=== PATIENT | female | born 1970 | race Caucasian/White ===

== ENCOUNTER 2017-08-20 22:49 | Emergency (ER) | payer SELFPAY ==
[2017-08-21] VITALS: BP 115/69
[2017-08-21] MEDS ORDERED: KETOROLAC TROMETHAMINE INJ/PF 30 MG/1 ML SDV IM ONE (00:21)
--- NOTE | 2017-08-21 00:23 | ER Document Report ---
HPI - HPI Pain Level: 4 Notes: Patient is a 46-year-old female with a history of bilateral fibular grafts and chronic right lower extremity leg pain, tramadol 4 times a day, who presents to the ED complaining of acute on chronic right lower leg pain anteriorly. Patient states that she is normally active and was moving boxes today, but no other strenuous activities. She is not aware of any obvious injury. Patient states that the pain travels up the right anterior leg from her ankle to her knee side. Patient states that dorsiflexion makes her pain worse. She has not noticed any swelling or redness. Patient has chronic medial knee pain which is not new for her. Patient states that she also has chronic pain to the right anterior leg, but this is more than usual. Patient states that she recently moved to the area and has not established with a provider yet. Denies any headache, fever, URI, sore throat, chest pain, palpitations, syncope, cough, shortness of breath, wheeze, dyspnea, abdominal pain, nausea/vomiting/diarrhea, urinary retention, dysuria, hematuria, loss of control of bowel or bladder, numbness/tingling, saddle anesthesia, muscle paralysis/weakness, or rash. - ROS Systems Reviewed and Negative: Yes All other systems reviewed and negative - REPRODUCTIVE Reproductive: DENIES: : - MUSCULOSKELETAL Musculoskeletal: REPORTS: Extremity pain - R ankle/foot Past Medical History - Social History Smoking Status: Unknown if Ever Smoked Family History: None Patient has suicidal ideation: No Patient has homicidal ideation: No - Past Medical History Cardiac Medical History: Reports: Hx Hypertension Renal/ Medical History: Denies: Hx Peritoneal Dialysis Past Surgical History: Reports: Hx Appendectomy, Hx Breast Surgery - cyst removed, Hx Orthopedic Surgery - multiple back surgeries Vertical Provider Document - CONSTITUTIONAL Agree With Documented VS: Yes Notes: PHYSICAL EXAMINATION: GENERAL: Well-appearing, well-nourished and in no acute distress. LUNGS: Breath sounds clear to auscultation bilaterally and equal. No wheezes rales or rhonchi. HEART: Regular rate and rhythm without murmurs, rubs, gallops. Musculoskeletal: Rt ankle: FROM to passive/active. Strength 5+/5. N/V intact distal. Non-tender. No bony tenderness of the foot. Achilles intact. Rt leg: No erythema, swelling, ecchymosis. Compartments are soft. + mild tenderness to the rt anterolateral leg. No posterior calf tenderness. Concepción neg b/l. Rt knee: FROM. Strength 5+/5. + mild tenderness to the medial knee (chronic per patient). No ecchymosis, effusion, erythema, or swelling noted. Extremities: No cyanosis, clubbing, or edema b/l. Peripheral pulses 2+. Capillary refill less than 3 seconds. NEUROLOGICAL: Normal speech, limping gait. Normal sensory, motor exams PSYCH: Normal mood, normal affect. SKIN: Warm, Dry, normal turgor, no rashes or lesions noted. - INFECTION CONTROL TRAVEL OUTSIDE OF THE [place] IN LAST 30 DAYS: No Course - Re-evaluation Re-evalutation: 08/21/17 00:[address] Collins who is in agreement with dispo/plan: Patient is an afebrile, well-hydrated, 46-year-old female who presents to the ED with acute on chronic right leg pain, suspect inflammatory versus nerve etiology. Vitals are acceptable. PE is otherwise unremarkable for any neurovascular compromise, obvious tendon rupture, obvious fracture/dislocation, septic joint, DVT, compartment syndrome. Toradol given IM today. We will give her a trial of gabapentin to take as directed to monitor for tolerance and drowsiness. Her other labs warranted at this time based on H&P. Patient declined crutches. Conservative measures otherwise for symptoms. Recheck/ establish with PCM in 3-5 days. Consider consult orthopedics and physical therapy. Return to the ED with worsening/concerning symptoms otherwise as reviewed discharge. Patient is in agreement. - Vital Signs Vital signs: Temp Pulse Resp BP Pulse Ox 98.6 F 97 16 115/69 96 08/20/17 23:00 08/20/17 23:00 08/20/17 23:00 08/20/17 23:00 08/20/17 23:00 Discharge - Discharge Clinical Impression: Right leg pain Condition: Stable Disposition: HOME, SELF-CARE Instructions: Leg Pain Nonspecific ([facility]) Additional Instructions: Rest, Ice, Compression, Elevation Tylenol/ibuprofen as needed Light stretches daily Strength exercises as able Moist heat and massage may help F/u with your PCP in 3-5 days for a recheck Consider consult(s) with Orthopedics/physical therapy for ongoing/worsening symptoms Return to the ED with any worsening symptoms and/or development of fever, headache, chest pain, palpitations, syncope, shortness of breath, trouble breathing, abdominal pain, n/v/d, muscle weakness/paralysis, numbness/tingling, swelling, redness, or other worsening symptoms that are concerning to you. Prescriptions: Gabapentin 300 mg PO BID PRN #14 capsule PRN Reason: Referrals: [facility] [Provider Group] - Follow up as needed [facility] [Provider Group] - Follow up as needed [facility] [Provider Group] - Follow up as needed
== END 2017-08-21 00:35 | disposition home or self-care (01) ==
LOC: ER 22:49
DX: M79.604 Pain in right leg (principal); G89.29 Other chronic pain; I10 Essential (primary) hypertension
CPT/HCPCS: 99283; 96372; J1885

== ENCOUNTER 2017-09-24 21:45 | Emergency (ER) | payer SELFPAY ==
[2017-09-24] MEDS ORDERED: NORMAL SALINE 1000 ML 1,000 ML IV ONE (22:16)
[2017-09-24] MEDS ORDERED: ONDANSETRON HCL INJ/PF 4 MG/2 ML SDV IV ONE (22:16)
[2017-09-24] MEDS ORDERED: METOCLOPRAMIDE HCL INJ/PF 10 MG/2 ML SDV IV ONE (22:45)
[2017-09-24] MEDS ORDERED: DICYCLOMINE HCL INJ 20 MG/2 ML AMPULE IM ONE (22:45)
[2017-09-24] MEDS ORDERED: FENTANYL CITRATE INJ/PF 100 MCG/2 ML AMPUL IV ONE (22:45)
[2017-09-24 22:49] LABS: APPEARANCE,URINE CLOUDY; BILIRUBIN,URINE NEGATIVE (NEGATIVE); COLOR,URINE YELLOW; GLUCOSE, URINE NEGATIVE (NEGATIVE); KETONES,URINE NEGATIVE (NEGATIVE); LEUKOCYTE ESTERASE,URINE NEGATIVE (NEGATIVE); NITRITE,URINE POSITIVE (NEGATIVE); PROTEIN,URINE NEGATIVE (NEGATIVE); URINE SPECIFIC GRAVITY 1.024; UROBILINOGEN,URINE NEGATIVE mg/dL (<2.0)
--- NOTE | 2017-09-24 22:52 | ER Document Report ---
ED GI/ - General Mode of Arrival: Ambulatory Information source: Patient TRAVEL OUTSIDE OF THE [place] IN LAST 30 DAYS: No <CATHERINE MEEHAN - Last Filed: 09/25/17 01:41> <DESIREE GIMENEZ - Last Filed: 09/25/17 04:58> - General Chief Complaint: Nausea/Vomiting Stated Complaint: VOMITING Time Seen by Provider: 09/24/17 22:12 Notes: 46 y.o. female presents to the ED with nausea, vomiting and a low grade fever for about one week. Pt reports that she has not been able to keep any fluids or food down and that she has also been dry heaving. She also complains of epigastric pain and recent swollen lymph nodes. She states that her pain and nausea are somewhat relieved as she leans forward or resting as compared to standing. She reports that the highest her fever has reached was 100.6. Pt reports starting Latuda about 1.5 months ago. She denies any constipation or diarrhea. Pt denies any hx of cholecystectomy. She reports an appendectomy about 20 years ago and L4 L5 S1 fusion. (CATHERINE MEEHAN) - Related Data Allergies/Adverse Reactions: prednisone [Prednisone] Allergy (Verified 08/20/17 23:47) Past Medical History - General Information source: Patient - Social History Smoking Status: Smoker,Current Status Unk Smoking Education Provided: Yes Frequency of alcohol use: Social Drug Abuse: None Family History: None - Past Medical History Cardiac Medical History: Reports: Hx Hypertension Renal/ Medical History: Denies: Hx Peritoneal Dialysis Past Surgical History: Reports: Hx Appendectomy, Hx Breast Surgery - cyst removed, Hx Orthopedic Surgery - multiple back surgeries <CATHERINE MEEHAN - Last Filed: 09/25/17 01:41> Review of Systems - Review of Systems Constitutional: See HPI, Fever EENT: No symptoms reported Cardiovascular: No symptoms reported Respiratory: No symptoms reported Gastrointestinal: See HPI, Abdominal pain, Nausea, Vomiting. denies: Diarrhea, Constipation Genitourinary: No symptoms reported Female Genitourinary: No symptoms reported Musculoskeletal: No symptoms reported Skin: No symptoms reported Hematologic/Lymphatic: See HPI, Enlarged lymph nodes Neurological/Psychological: No symptoms reported -: Yes All other systems reviewed and negative <CATHERINE MEEHAN - Last Filed: 09/25/17 01:41> Physical Exam <CATHERINE MEEHAN - Last Filed: 09/25/17 01:41> <DESIREE GIMENEZ - Last Filed: 09/25/17 04:58> - Vital signs Vitals: Temp Pulse Resp BP Pulse Ox 99.4 F 103 H 20 132/79 H 96 09/24/17 21:54 09/24/17 21:54 09/24/17 21:54 09/24/17 21:54 09/24/17 21:54 - Notes Notes: Physical Exam: General: Alert, appears well. HEENT: Normocephalic. Atraumatic. PERRL. Extraocular movements intact. Dry mucous membranes. Neck: Supple. Non-tender. Respiratory: No respiratory distress. Clear and equal breath sounds bilaterally. Cardiovascular: Tachycardic rate and regular rhythm. Abdominal: Normal Inspection. Tender to palpation to epigatric region and RUQ. No distension. Normal Bowel Sounds. Back: Non-tender. No deformity or step off. Extremities: Moves all four extremities. Upper extremities: Normal inspection. Normal ROM. Lower extremities: Normal inspection. No edema. Normal ROM. Neurological: Normal cognition. AAOx3. Normal speech. Psychological: Normal affect. Normal Mood. Skin: Hot. Dry. Normal color. (CATHERINE MEEHAN) Course - Laboratory Result Diagrams: 09/24/17 23:00 09/24/17 23:00 <CATHERINE MEEHAN - Last Filed: 09/25/17 01:41> - Laboratory Result Diagrams: 09/24/17 23:00 09/24/17 23:00 - Diagnostic Test Radiology reviewed: Reports reviewed <DESIREE GIMENEZ - Last Filed: 09/25/17 04:58> - Re-evaluation Re-evalutation: 09/24/17 23:36 Rechecked patient. She reports that she is feeling better after treatment. 09/25/17 00:17 Pt is starting to have some upper abd pain again. CT ordered. 09/25/17 01:41 Pt is feeling better. (CATHERINE MEEHAN) 09/25/17 Patient is a 46-year-old female who comes in complaining of upper abdominal pain nausea and vomiting. Patient initially felt somewhat better after medications. Ultrasound within normal limits. Patient had some return of pain and was given GI cocktail. CT is not showing any acute findings. Patient is taking p.o. without difficulty and is feeling much better. She has also had recent upper respiratory symptoms and concern for sinus infection. Given the patient's exam and history are most consistent with gastritis or early peptic ulcer disease and difficulty with follow-up, I will start her on clarithromycin which should cover both her upper respiratory symptoms and possible sinusitis as well as her possible peptic ulcer disease. The patient does not have insurance or follow-up. I placed a social work consult to hopefully help her with insurance and ability to get prescriptions and follow-up. Patient has no further abdominal pain or tenderness to palpation on discharge. Vitals are improved. Return if any worsening or concerning symptoms. Understands agrees with plan. Stable for discharge. Grateful for care. (DESIREE GIMENEZ) - Vital Signs Vital signs: Temp Pulse Resp BP Pulse Ox 98.7 F 85 16 113/75 95 09/25/17 03:43 09/25/17 03:43 09/25/17 03:43 09/25/17 03:43 09/25/17 03:43 - Laboratory Laboratory results interpreted by me: 09/24/17 09/24/17 22:30 23:00 BUN 21 H AST 71 H Urine Nitrite POSITIVE H Discharge <CATHERINE MEEHAN - Last Filed: 09/25/17 01:41> <DESIREE GIMENEZ - Last Filed: 09/25/17 04:58> - Discharge Clinical Impression: Vomiting Qualifiers: Vomiting type: unspecified Vomiting Intractability: non-intractable Nausea presence: with nausea Qualified Code(s): R11.2 - Nausea with vomiting, unspecified Abdominal pain Qualifiers: Abdominal location: epigastric Qualified Code(s): R10.13 - Epigastric pain Condition: Stable Disposition: HOME, SELF-CARE Instructions: Evaluation of Upper Abdominal Pain ([facility]), Vomiting ([facility]) Prescriptions: Clarithromycin 500 mg PO BID #14 tablet Dicyclomine HCl [Bentyl 20 mg Tablet] 20 mg PO QID #40 tablet Metoclopramide HCl [Reglan 10 mg Tablet] 1 tab PO TIDP PRN #25 tablet PRN Reason: Omeprazole 40 mg PO DAILY #30 capsule. Sucralfate [Carafate 1 gm Tablet] 1 gm PO ACHS #120 tablet Scribe Attestation: 09/25/17 04:58 I personally performed the services described in the documentation, reviewed and edited the documentation which was dictated to the scribe in my presence, and it accurately records my words and actions. (DESIREE GIMENEZ) Scribe Documentation - Scribe Written by Alesha:: Alesha Nelson 09/24/17 [id number] acting as scribe for :: Cici <CATHERINE MEEHAN - Last Filed: 09/25/17 01:41>
[2017-09-24 23:17] LABS: ABSOLUTE BASOPHILS # (AUTO) 0.1 10^3/uL (0.0-0.2); ABSOLUTE EOSINOPHILS # (AUTO) 0.1 10^3/uL (0.0-0.6); ABSOLUTE MONOCYTES (AUTO) 0.6 10^3/uL (0.1-1.4); ABSOLUTE NEUT (AUTO) 5.4 10^3/uL (1.7-8.2); BASOPHILS % (AUTO) 1.3 % (0-2); EOSINOPHILS % (AUTO) 1.5 % (0-6); HEMATOCRIT 36.4 % (36.0-47.0); HEMOGLOBIN 12.6 g/dL (12.0-15.5); LYMPHOCYTES % (AUTO) 24.1 % (13-45); MEAN CORPUSCULAR HEMOGLOBIN 32.8 pg (27.0-33.4); MEAN CORPUSCULAR HGB CONC 34.6 g/dL (32.0-36.0); MEAN CORPUSCULAR VOLUME 95 fl (80-97); MONOCYTES % (AUTO) 7.7 % (3-13); PLATELET COUNT 347 10^3/uL (150-450); RED BLOOD COUNT 3.84 10^6/uL (3.72-5.28); RED CELL DISTRIBUTION WIDTH 13.4 % (11.5-14.0); SEGMENTED NEUTROPHILS % (AUTO) 65.4 % (42-78); TOTAL CELLS COUNTED % (AUTO) 100 %; WHITE BLOOD COUNT 8.3 10^3/uL (4.0-10.5)
[2017-09-24 23:30] LABS: ALANINE AMINOTRANSFERASE 38 U/L (9-52); ALBUMIN 4.3 g/dL (3.5-5.0); ALKALINE PHOSPHATASE 84 U/L (38-126); ANION GAP 11 (5-19); ASPARTATE AMINO TRANSFERASE 71 U/L (14-36); BILIRUBIN,DIRECT 0.2 mg/dL (0.0-0.4); BILIRUBIN,TOTAL 0.2 mg/dL (0.2-1.3); BLOOD UREA NITROGEN 21 mg/dL (7-20); CARBON DIOXIDE 26 mmol/L (22-30); CHLORIDE 104 mmol/L (98-107); GLUCOSE 90 mg/dL (75-110); LIPASE 114.7 U/L (23-300); POTASSIUM 4.4 mmol/L (3.6-5.0); SODIUM 141.2 mmol/L (137-145); TOTAL PROTEIN 7.3 g/dL (6.3-8.2)
--- NOTE | 2017-09-24 23:58 | RADIOLOGY REPORT (SQ) ---
EXAM DESCRIPTION: XR ABDOMEN 3 VIEWS CLINICAL HISTORY: 46 years Female, Abd pain, N/V Comparison: None. LIMITATIONS: None. FINDINGS: Gallbladder, negative sonographic Fulton's test, liver, a 0.4-cm diameter common bile duct, no intrahepatic ductal dilation, 10-cm right kidney contains a 1.9 cm indeterminate hypoechoic exophytic lesion, pancreas, 10 cm left kidney, spleen, visualized vasculature/abdominal aorta, and no significant ascites appear otherwise unremarkable. IMPRESSION: Indeterminate 1.9 cm right renal lesion may indicate a hemorrhagic cyst or other neoplasm. Recommend multiphase contrast CT or MRI of the kidneys.
[2017-09-25] MEDS ORDERED: SUCRALFATE 1 GM TABLET PO ONE (00:15)
[2017-09-25] MEDS ORDERED: PANTOPRAZOLE SODIUM 40 MG VIAL IV ONE (00:15)
[2017-09-25] MEDS ORDERED: FENTANYL CITRATE INJ/PF 100 MCG/2 ML AMPUL IV ONE (00:33)
--- NOTE | 2017-09-25 01:23 | RADIOLOGY REPORT (SQ) ---
EXAM DESCRIPTION: CT ABDOMEN PELVIS WITH IV CONTRAST CLINICAL HISTORY: 46 years Female, Abd pain, N/V Comparison: None. Technique: IV contrast. Coronal and sagittal reformat. This exam was performed according to our departmental dose-optimization program, which includes automated exposure control, adjustment of the mA and/or kV according to patient size and/or use of iterative reconstruction technique.[facility]: Dose Right [facility]: CareDose [facility]: Dose Right [facility]: Teradose 4D [facility]: Smart Wize LIMITATIONS: As below. Findings: No ascites. Anterior L5-S1 hardware fusion, intramedullary tract/graft of bilateral femoral necks, mild hepatic steatosis, no appendicitis; appendix not discerned consistent with history of appendectomy. Inferior thorax, liver, gallbladder, pancreas, spleen, adrenals, renal system, gastrointestinal tract, pelvic organs, lymphatics, vasculature, and musculoskeleton appear otherwise unremarkable. IMPRESSION: No acute findings.Limitation: There is no obvious renal lesion on this nondedicated exam in this patient with an abnormal previous abdominal sonogram. Multiphase dedicated contrast CT or MRI of the kidneys still recommended including noncontrast and arterial phase thin collimation imaging.
[2017-09-25] MEDS ORDERED: CLARITHROMYCIN 500 MG TABLET PO ONE ×2 (01:40→03:07)
[2017-09-25 03:45] VITALS: BP 113/75
== END 2017-09-25 03:43 | disposition home or self-care (01) ==
LOC: ER 21:45
DX: R11.2 Nausea with vomiting, unspecified (principal); R50.9 Fever, unspecified; R10.13 Epigastric pain; R10.816 Epigastric abdominal tenderness; R10.811 Right upper quadrant abdominal tenderness; I10 Essential (primary) hypertension; R09.89 Other specified symptoms and signs involving the circulatory and respiratory systems; R59.9 Enlarged lymph nodes, unspecified; R00.0 Tachycardia, unspecified; Z79.899 Other long term (current) drug therapy; Z88.8 Allergy status to other drugs, medicaments and biological substances; Z90.49 Acquired absence of other specified parts of digestive tract
CPT/HCPCS: 96376; 99284; 96372; 96361; 96374; 96375; 36415; 83690; 85025; 80053; 81001; 84484; 76700; 74177; J0500; J3010 ×2; J3490; J2765; S0164; J7030

== ENCOUNTER → 2017-12-06 | Outpatient (CLI) | payer OTHER ==
[2017-12-06 16:21] LABS: ABSOLUTE BASOPHILS # (AUTO) 0.1 10^3/uL (0.0-0.2); ABSOLUTE EOSINOPHILS # (AUTO) 0.4 10^3/uL (0.0-0.6); ABSOLUTE LYMPHOCYTES (AUTO) 3.2 10^3/uL (0.5-4.7); ABSOLUTE MONOCYTES (AUTO) 0.8 10^3/uL (0.1-1.4); ABSOLUTE NEUT (AUTO) 7.9 10^3/uL (1.7-8.2); EOSINOPHILS % (AUTO) 3.4 % (0-6); HEMATOCRIT 36.8 % (36.0-47.0); HEMOGLOBIN 12.8 g/dL (12.0-15.5); LYMPHOCYTES % (AUTO) 25.9 % (13-45); MEAN CORPUSCULAR HEMOGLOBIN 32.1 pg (27.0-33.4); MEAN CORPUSCULAR HGB CONC 34.7 g/dL (32.0-36.0); MEAN CORPUSCULAR VOLUME 93 fl (80-97); MONOCYTES % (AUTO) 6.4 % (3-13); PLATELET COUNT 357 10^3/uL (150-450); RED BLOOD COUNT 3.98 10^6/uL (3.72-5.28); SEGMENTED NEUTROPHILS % (AUTO) 63.3 % (42-78); TOTAL CELLS COUNTED % (AUTO) 100 %; WHITE BLOOD COUNT 12.4 10^3/uL (4.0-10.5)
[2017-12-06 17:03] LABS: ERYTHROCYTE SEDIMENTATION RATE 30 mm/hr (0-20)
[2017-12-06 17:17] LABS: ANION GAP 14 (5-19); BLOOD UREA NITROGEN 22 mg/dL (7-20); C-REACTIVE PROTEIN 19.1 mg/L (<10.0); CALCIUM 9.6 mg/dL (8.4-10.2); CARBON DIOXIDE 22 mmol/L (22-30); CHLORIDE 102 mmol/L (98-107); GLUCOSE 85 mg/dL (75-110); POTASSIUM 4.5 mmol/L (3.6-5.0); SODIUM 138.2 mmol/L (137-145)
== END ==
LOC: CCC 14:57
DX: R10.9 Unspecified abdominal pain (principal); R11.2 Nausea with vomiting, unspecified; R50.9 Fever, unspecified
CPT/HCPCS: 36415; 80048; 82306; 84443; 85025; 85652; 86140; 86200

== ENCOUNTER → 2017-12-13 | Outpatient (CLI) | payer OTHER ==
--- NOTE | 2017-12-13 12:55 | RADIOLOGY REPORT (SQ) ---
EXAM DESCRIPTION: UPPER GI/SM BOWEL COMPLETED DATE/TIME: 12/13/2017 12:18 pm REASON FOR STUDY: UNSPECIFIED ABDOMINAL PAIN R10.9 UNSPECIFIED ABDOMINAL PAIN R11.2 NAUSEA WITH VO MITING, UNSPECIFIED COMPARISON: CT abdomen pelvis 09/25/2017 Abdominal ultrasound 09/24/2017 TECHNIQUE: Under fluoroscopic guidance, patient ingested effervescent granules followed by thick an d thin barium. Fluoroscopic spot images and routine radiographic images acquired and stored on PACS . Following evaluation of esophagus and stomach, additional barium administered with serial delayed ab dominal radiographs until colonic identification. Fluoroscopic images recorded of the terminal ileu m. 12 MM BARIUM TABLET GIVEN: Yes. No significant delay in passage. FLUOROSCOPY TIME: 3 minutes total fluoro time 45 digital radiographic images saved to PACS. LIMITATIONS: None. FINDINGS: NEUROMUSCULAR COORDINATION OF SWALLOW: Normal. No aspiration. ESOPHAGEAL MOTILITY: Normal peristalsis. No esophageal spasm. ESOPHAGEAL MUCOSA: Normal mucosa without masses or ulceration. GASTRO-ESOPHAGEAL JUNCTION: There is a small sliding hiatal hernia without gastroesophageal reflux STOMACH: Along the posterior wall of the gastric antrum, there is mucosal irregularity which could re present regional edema related to a small ulcer. This area is very difficult to profile at fluorosco py. No delay in gastric emptying. GASTRIC OUTLET: No delay in emptying. Normal pylorus. DUODENAL BULB: Normal distention. No spasm or ulceration. DUODENUM: Mucosa normal. No extrinsic masses or malrotation. PROXIMAL SMALL BOWEL: Normal as visualized. JEJUNUM: Normal mucosal pattern. No dilatation, segmentation, strictures or masses. ILEUM: Normal mucosal pattern. No dilatation, segmentation, strictures or masses. TERMINAL ILEUM AND ILEO-CECAL VALVE: Normal mucosal pattern without cobble-stoning or stricture. Nor mal compression. PROXIMAL COLON: Incompletely imaged. No abnormality. NON-GI TRACT STRUCTURES: Policy Issue Clerk film demonstrates fusion at L5-S1 and bilateral proximal femur osteoto mies for avascular necrosis. OTHER: No other significant finding. IMPRESSION: Findings worrisome for a small gastric antral ulcer. Otherwise unremarkable upper GI/ small bowel follow-through COMMENT: Quality ID [id number]: Final reports for procedures using fluoroscopy that document radiation exp osure indices, or exposure time and number of fluorographic images (if radiation exposure indices are not available) TECHNICAL DOCUMENTATION: JOB ID: [id number] [employer]- All Rights Reserved Reading location - IP/workstation name: [email or web address]
== END ==
LOC: RAD 08:14
DX: K25.9 Gastric ulcer, unspecified as acute or chronic, without hemorrhage or perforation (principal); R10.9 Unspecified abdominal pain; R11.2 Nausea with vomiting, unspecified
CPT/HCPCS: 74249

== ENCOUNTER → 2017-12-22 | Outpatient (CLI) | payer OTHER | LOC: RAD 14:54 | DX: R41.3 Other amnesia (principal) ==

== ENCOUNTER 2018-01-02 17:25 | Emergency (ER) | payer OTHER ==
[2018-01-02 18:01] VITALS: BP 116/64
== END 2018-01-02 18:05 | disposition left against medical advice (07) ==
LOC: ER 17:25
DX: Z53.21 Procedure and treatment not carried out due to patient leaving prior to being seen by health care provider (principal)

== ENCOUNTER 2018-01-03 11:21 | Emergency (ER) | payer OTHER ==
[2018-01-03] MEDS ORDERED: HYDROCODONE/ACETAMINOPHEN 5-325 MG TABLET PO ONE (12:34)
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
[2018-01-03 12:57] LABS: APPEARANCE,URINE SLIGHTLY-CLOUDY; BILIRUBIN,URINE NEGATIVE (NEGATIVE); COLOR,URINE YELLOW; GLUCOSE, URINE NEGATIVE (NEGATIVE); KETONES,URINE NEGATIVE (NEGATIVE); LEUKOCYTE ESTERASE,URINE NEGATIVE (NEGATIVE); NITRITE,URINE NEGATIVE (NEGATIVE); PROTEIN,URINE NEGATIVE (NEGATIVE); URINE SPECIFIC GRAVITY 1.014; UROBILINOGEN,URINE NEGATIVE mg/dL (<2.0)
[2018-01-03 13:31] LABS: ABSOLUTE BASOPHILS # (AUTO) 0.1 10^3/uL (0.0-0.2); ABSOLUTE EOSINOPHILS # (AUTO) 0.4 10^3/uL (0.0-0.6); ABSOLUTE LYMPHOCYTES (AUTO) 3.7 10^3/uL (0.5-4.7); ABSOLUTE MONOCYTES (AUTO) 0.7 10^3/uL (0.1-1.4); BASOPHILS % (AUTO) 1.1 % (0-2); EOSINOPHILS % (AUTO) 2.8 % (0-6); HEMATOCRIT 37.6 % (36.0-47.0); HEMOGLOBIN 12.7 g/dL (12.0-15.5); LYMPHOCYTES % (AUTO) 28.6 % (13-45); MEAN CORPUSCULAR HEMOGLOBIN 31.2 pg (27.0-33.4); MEAN CORPUSCULAR HGB CONC 33.9 g/dL (32.0-36.0); MEAN CORPUSCULAR VOLUME 92 fl (80-97); MONOCYTES % (AUTO) 5.3 % (3-13); PLATELET COUNT 344 10^3/uL (150-450); RED BLOOD COUNT 4.08 10^6/uL (3.72-5.28); RED CELL DISTRIBUTION WIDTH 13.3 % (11.5-14.0); SEGMENTED NEUTROPHILS % (AUTO) 62.2 % (42-78); TOTAL CELLS COUNTED % (AUTO) 100 %; WHITE BLOOD COUNT 12.8 10^3/uL (4.0-10.5)
[2018-01-03 13:40] LABS: ALANINE AMINOTRANSFERASE 44 U/L (9-52); ALBUMIN 4.2 g/dL (3.5-5.0); ALKALINE PHOSPHATASE 98 U/L (38-126); ANION GAP 8 (5-19); ASPARTATE AMINO TRANSFERASE 24 U/L (14-36); BILIRUBIN,DIRECT 0.3 mg/dL (0.0-0.4); BILIRUBIN,TOTAL 0.4 mg/dL (0.2-1.3); BLOOD UREA NITROGEN 36 mg/dL (7-20); CALCIUM 9.6 mg/dL (8.4-10.2); CARBON DIOXIDE 25 mmol/L (22-30); CHLORIDE 103 mmol/L (98-107); GLUCOSE 96 mg/dL (75-110); POTASSIUM 4.7 mmol/L (3.6-5.0); SODIUM 135.9 mmol/L (137-145); TOTAL PROTEIN 7.2 g/dL (6.3-8.2)
[2018-01-03] MEDS ORDERED: NORMAL SALINE 1000 ML 1,000 ML IV ONE (14:10)
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
[2018-01-03] MEDS ORDERED: LIDOCAINE 5% (700 MG) TRANSDERMAL ADH..PATCH TP ONE (14:32)
[2018-01-03 15:05] VITALS: BP 102/52
== END 2018-01-03 15:05 | disposition home or self-care (01) ==
LOC: ER 11:21
DX: R10.9 Unspecified abdominal pain (principal); V87.7XXA Person injured in collision between other specified motor vehicles (traffic), initial encounter; F17.210 Nicotine dependence, cigarettes, uncomplicated
CPT/HCPCS: 36415; 74177; 80053; 81001; 84703; 85025; 96360; 99284

== ENCOUNTER 2018-01-29 20:20 | Emergency (ER) | payer OTHER ==
[2018-01-29 20:42] VITALS: BP 112/64
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
[2018-01-29 21:32] LABS: ABSOLUTE EOSINOPHILS # (AUTO) 0.2 10^3/uL (0.0-0.6); ABSOLUTE LYMPHOCYTES (AUTO) 3.8 10^3/uL (0.5-4.7); ABSOLUTE MONOCYTES (AUTO) 0.5 10^3/uL (0.1-1.4); ABSOLUTE NEUT (AUTO) 7.8 10^3/uL (1.7-8.2); BASOPHILS % (AUTO) 0.2 % (0-2); HEMATOCRIT 34.5 % (36.0-47.0); HEMOGLOBIN 12.1 g/dL (12.0-15.5); LYMPHOCYTES % (AUTO) 30.5 % (13-45); MEAN CORPUSCULAR HEMOGLOBIN 33.2 pg (27.0-33.4); MEAN CORPUSCULAR VOLUME 95 fl (80-97); MONOCYTES % (AUTO) 4.3 % (3-13); PLATELET COUNT 385 10^3/uL (150-450); RED BLOOD COUNT 3.64 10^6/uL (3.72-5.28); RED CELL DISTRIBUTION WIDTH 15.7 % (11.5-14.0); TOTAL CELLS COUNTED % (AUTO) 100 %; WHITE BLOOD COUNT 12.4 10^3/uL (4.0-10.5)
[2018-01-29 21:42] LABS: APPEARANCE,URINE SLIGHTLY-CLOUDY; BILIRUBIN,URINE NEGATIVE (NEGATIVE); COLOR,URINE YELLOW; GLUCOSE, URINE NEGATIVE (NEGATIVE); KETONES,URINE NEGATIVE (NEGATIVE); LEUKOCYTE ESTERASE,URINE MODERATE (NEGATIVE); NITRITE,URINE NEGATIVE (NEGATIVE); PROTEIN,URINE NEGATIVE (NEGATIVE); UROBILINOGEN,URINE NEGATIVE mg/dL (<2.0)
[2018-01-29 22:03] LABS: ALANINE AMINOTRANSFERASE 21 U/L (9-52); ALKALINE PHOSPHATASE 77 U/L (38-126); ANION GAP 9 (5-19); ASPARTATE AMINO TRANSFERASE 15 U/L (14-36); BILIRUBIN,DIRECT 0.1 mg/dL (0.0-0.4); BILIRUBIN,TOTAL 0.3 mg/dL (0.2-1.3); BLOOD UREA NITROGEN 15 mg/dL (7-20); CALCIUM 9.5 mg/dL (8.4-10.2); CARBON DIOXIDE 24 mmol/L (22-30); CHLORIDE 109 mmol/L (98-107); GLUCOSE 87 mg/dL (75-110); POTASSIUM 3.8 mmol/L (3.6-5.0); SODIUM 142.1 mmol/L (137-145)
[2018-01-29] MEDS ORDERED: KETOROLAC TROMETHAMINE INJ/PF 30 MG/1 ML SDV IV ONE (23:02)
[2018-01-29] MEDS ORDERED: ONDANSETRON HCL INJ/PF 4 MG/2 ML SDV IV ONE (23:03)
[2018-01-29] MEDS ORDERED: NORMAL SALINE 1000 ML 1,000 ML IV ONE (23:03)
--- NOTE | 2018-01-29 23:57 | RADIOLOGY REPORT (SQ) ---
EXAM DESCRIPTION: CT ABDOMEN PELVIS WITH IV CONTRAST COMPLETED DATE/TME: 01/29/2018 23:02 CLINICAL HISTORY: 47 years Female Right Flank Pain COMPARISON: 01/02/2018. TECHNIQUE: Contiguous axial images obtained through the abdomen and pelvis following IV contrast. Reformatted images obtained. This exam was performed according to our department optimization program which includes automated exposure control, adjustment of the mA and/or kv according to patient size and/or use of iterative reconstruction technique. FINDINGS: The liver appears unremarkable. The spleen and pancreas appear unremarkable. No adrenal masses. No hydronephrosis or evidence of obstructive uropathy. Perinephric stranding around the mid and lower pole the right kidney with a subtly striated nephrogram best appreciated on the postcontrast delayed imaging. Findings are consistent with pyelonephritis. The gallbladder is visualized. No aneurysmal dilatation of the aorta. No bowel obstruction. The appendix is nonvisualized. Diverticulosis without evidence of diverticulitis. Anterior fusion at L5-S1.. No significant free fluid noted. IMPRESSION: Findings suggesting right pyelonephritis
[2018-01-30] MEDS ORDERED: CEFTRIAXONE 2 GM/D5W RTU 2 GM/50 ML RTUPB IV ONE (00:16)
[2018-01-30] MEDS ORDERED: CEFTRIAXONE INJ 1000 MG VIAL ONE (00:55)
--- NOTE | 2018-01-30 01:42 | ER Document Report ---
ED GI/ - General Chief Complaint: Flank Pain Stated Complaint: BLOOD IN URINE Time Seen by Provider: 01/29/18 20:57 Mode of Arrival: Ambulatory Information source: Patient TRAVEL OUTSIDE OF THE [place] IN LAST 30 DAYS: No - HPI Patient complains to provider of: Abdominal pain, Flank pain, Hematuria Onset: Just prior to arrival Timing/Duration: Sudden Quality of pain: Sharp Severity at maximum: Severe Severity in ED: Moderate Pain Level: 3 Location: Right flank Vaginal bleeding (Compared to normal period): None OB ultrasound done: No vitamins taken: No Exacerbated by: Denies Relieved by: Denies Similar symptoms previously: No Recently seen / treated by doctor: No - Related Data Allergies/Adverse Reactions: prednisone [Prednisone] Allergy (Verified 01/02/18 17:26) Past Medical History - Social History Smoking Status: Current Every Day Smoker Chew tobacco use (# tins/day): No Frequency of alcohol use: Occasional Drug Abuse: None Family History: None Patient has suicidal ideation: No Patient has homicidal ideation: No - Past Medical History Cardiac Medical History: Reports: Hx Hypertension Renal/ Medical History: Denies: Hx Peritoneal Dialysis Psychiatric Medical History: Reports: Hx Anxiety, Hx Depression, Hx Post Traumatic Stress Disorder Past Surgical History: Reports: Hx Appendectomy, Hx Breast Surgery - cyst removed, Hx Orthopedic Surgery - multiple back surgeries Review of Systems - Review of Systems Constitutional: No symptoms reported EENT: No symptoms reported Cardiovascular: No symptoms reported Respiratory: No symptoms reported Gastrointestinal: Abdominal pain Genitourinary: No symptoms reported Female Genitourinary: No symptoms reported Musculoskeletal: No symptoms reported Skin: No symptoms reported Hematologic/Lymphatic: No symptoms reported Neurological/Psychological: No symptoms reported -: Yes All other systems reviewed and negative Physical Exam - Vital signs Vitals: Temp Pulse Resp BP Pulse Ox 98.5 F 100 16 112/64 94 01/29/18 20:38 01/29/18 20:38 01/29/18 20:38 01/29/18 20:38 01/29/18 20:38 Interpretation: Normal - General General appearance: Appears well, Alert - HEENT Head: Normocephalic, Atraumatic Eyes: Normal Pupils: PERRL - Respiratory Respiratory status: No respiratory distress Chest status: Nontender Breath sounds: Normal Chest palpation: Normal - Cardiovascular Rhythm: Regular Heart sounds: Normal auscultation Murmur: No - Abdominal Inspection: Normal Distension: No distension Bowel sounds: Normal Tenderness: Tender - Right CVA tenderness to palpation. Organomegaly: No organomegaly - Back Back: Normal, Nontender - Extremities General upper extremity: Normal inspection, Nontender, Normal color, Normal ROM , Normal temperature General lower extremity: Normal inspection, Nontender, Normal color, Normal ROM , Normal temperature, Normal weight bearing. No: Concepción's sign - Neurological Neuro grossly intact: Yes Cognition: Normal Orientation: AAOx4 Lynch Coma Scale Eye Opening: Spontaneous Lynch Coma Scale Verbal: Oriented Lynch Coma Scale Motor: Obeys Commands Odin Coma Scale Total: 15 Speech: Normal Motor strength normal: LUE, RUE, LLE, RLE Sensory: Normal - Psychological Associated symptoms: Normal affect, Normal mood - Skin Skin Temperature: Warm Skin Moisture: Dry Skin Color: Normal Course - Vital Signs Vital signs: Temp Pulse Resp BP Pulse Ox 98.5 F 100 16 112/64 94 01/29/18 20:38 01/29/18 20:38 01/29/18 20:38 01/29/18 20:38 01/29/18 20:38 - Laboratory Result Diagrams: 01/29/18 21:21 01/29/18 21:21 Laboratory results interpreted by me: 01/29/18 01/29/18 01/29/18 21:21 21:21 21:21 WBC 12.4 H RBC 3.64 L Hct 34.5 L RDW 15.7 H Chloride 109 H Urine Blood LARGE H Ur Leukocyte Esterase MODERATE H - Diagnostic Test Radiology reviewed: Image reviewed, Reports reviewed - Transfer of Care Notes: 01/30/18 03:38 Right flank pain. Discharge - Discharge Clinical Impression: Pyelonephritis Hematuria Qualifiers: Hematuria type: other microscopic Qualified Code(s): R31.29 - Other microscopic hematuria Condition: Stable Disposition: HOME, SELF-CARE Instructions: Hematuria ([facility]), Pyelonephritis ([facility]) Additional Instructions: Please follow up with your regular doctor tomorrow morning. Return to the ED if your condition worsens. Prescriptions: Cephalexin [Keflex] 500 mg PO QID #40 capsule Ibuprofen 800 mg PO TID PRN #30 tablet PRN Reason: Pain Scale Of 4 Ondansetron [Zofran Odt 4 mg Tablet] 1 - 2 tab PO Q6H PRN #20 tab.rapdis PRN Reason: For Nausea/Vomiting Forms: Return to Work Referrals: ANATOLIY CRUZ MD [Primary Care Provider] - Follow up as needed
== END 2018-01-30 02:02 | disposition home or self-care (01) ==
LOC: ER 20:20
DX: N12 Tubulo-interstitial nephritis, not specified as acute or chronic (principal); R31.29 Other microscopic hematuria; R10.9 Unspecified abdominal pain; F17.200 Nicotine dependence, unspecified, uncomplicated; I10 Essential (primary) hypertension
CPT/HCPCS: 99284; 96361; 96375; 96365; 36415; 87086; 85025; 81025; 87088; 80053; 81001; 87186; 74177; J1885; J2405; J7030; J0696

== ENCOUNTER 2018-02-18 18:24 | Emergency (ER) | payer OTHER ==
[2018-02-18] MEDS ORDERED: ONDANSETRON HCL INJ/PF 4 MG/2 ML SDV IV ONE (18:46)
[2018-02-18] MEDS ORDERED: MORPHINE SULFATE 10 MG/ML INJ IV ONE ×2 (18:46→21:22)
[2018-02-18] MEDS: NORMAL SALINE 1000 ML 1,000 ML IV PRN ×2 (18:58→20:07)
--- NOTE | 2018-02-18 18:58 | ER Document Report ---
ED Medical Screen (RME) - General Chief Complaint: Flank Pain Stated Complaint: FLANK PAIN Time Seen by Provider: 02/18/18 18:45 Mode of Arrival: Ambulatory Information source: Patient Notes: This is a 47-year-old female presenting to the emergency room with right back pain/flank pain for the past 2 days associated with nausea, vomiting, subjective fevers. Patient does have a history of right back pain and was treated 2 weeks ago for a pyelonephritis. She has had recurrent symptoms of the right back for the past several months and has had multiple CTs in the past 4 months. Ultrasound in the past has shown a possible right renal lesion but subsequent CTs have not observe this. The patient's last CT showed findings consistent with pyelonephritis. She was initially placed on Keflex which was switched over to Cipro after return of urine culture. Patient states she did improve after the Cipro. She states that symptoms returned 2 days ago. TRAVEL OUTSIDE OF THE [place] IN LAST 30 DAYS: No - Related Data Allergies/Adverse Reactions: prednisone [Prednisone] Allergy (Verified 01/02/18 17:26) Past Medical History - Social History Family history: None - Past Medical History Cardiac Medical History: Reports: Hx Hypertension Renal/ Medical History: Denies: Hx Peritoneal Dialysis Psychiatric Medical History: Reports: Hx Anxiety, Hx Post Traumatic Stress Disorder Denies: Hx Depression Past Surgical History: Reports: Hx Appendectomy, Hx Breast Surgery - cyst removed, Hx Orthopedic Surgery - multiple back surgeries Physical Exam - Vital signs Vitals: Temp Pulse Resp BP Pulse Ox 98.3 F 95 18 127/84 H 97 02/18/18 18:32 02/18/18 18:32 02/18/18 18:32 02/18/18 18:32 02/18/18 18:32 Course - Vital Signs Vital signs: Temp Pulse Resp BP Pulse Ox 98.3 F 95 18 127/84 H 97 02/18/18 18:32 02/18/18 18:32 02/18/18 18:32 02/18/18 18:32 02/18/18 18:32 Doctor's Discharge - Discharge Referrals: ANATOLIY CRUZ MD [Primary Care Provider] - Follow up as needed
[2018-02-18 19:15] LABS: ABSOLUTE BASOPHILS # (AUTO) 0.2 10^3/uL (0.0-0.2); ABSOLUTE EOSINOPHILS # (AUTO) 0.1 10^3/uL (0.0-0.6); ABSOLUTE LYMPHOCYTES (AUTO) 3.3 10^3/uL (0.5-4.7); ABSOLUTE MONOCYTES (AUTO) 0.8 10^3/uL (0.1-1.4); ABSOLUTE NEUT (AUTO) 15.6 10^3/uL (1.7-8.2); BASOPHILS % (AUTO) 0.8 % (0-2); EOSINOPHILS % (AUTO) 0.5 % (0-6); HEMATOCRIT 41.2 % (36.0-47.0); HEMOGLOBIN 14.3 g/dL (12.0-15.5); LYMPHOCYTES % (AUTO) 16.8 % (13-45); MEAN CORPUSCULAR HEMOGLOBIN 33.6 pg (27.0-33.4); MEAN CORPUSCULAR HGB CONC 34.7 g/dL (32.0-36.0); MEAN CORPUSCULAR VOLUME 97 fl (80-97); MONOCYTES % (AUTO) 3.8 % (3-13); PLATELET COUNT 447 10^3/uL (150-450); RED BLOOD COUNT 4.26 10^6/uL (3.72-5.28); RED CELL DISTRIBUTION WIDTH 16.3 % (11.5-14.0); SEGMENTED NEUTROPHILS % (AUTO) 78.1 % (42-78); TOTAL CELLS COUNTED % (AUTO) 100 %; WHITE BLOOD COUNT 19.9 10^3/uL (4.0-10.5)
[2018-02-18 19:25] LABS: APPEARANCE,URINE SLIGHTLY-CLOUDY; BILIRUBIN,URINE NEGATIVE (NEGATIVE); COLOR,URINE YELLOW; GLUCOSE, URINE NEGATIVE (NEGATIVE); KETONES,URINE NEGATIVE (NEGATIVE); LEUKOCYTE ESTERASE,URINE NEGATIVE (NEGATIVE); NITRITE,URINE NEGATIVE (NEGATIVE); PROTEIN,URINE 30 mg/dL (NEGATIVE); URINE SPECIFIC GRAVITY 1.027
[2018-02-18 19:30] LABS: ALANINE AMINOTRANSFERASE 28 U/L (9-52); ALBUMIN 4.7 g/dL (3.5-5.0); ALKALINE PHOSPHATASE 97 U/L (38-126); ANION GAP 14 (5-19); ASPARTATE AMINO TRANSFERASE 23 U/L (14-36); BILIRUBIN,DIRECT 0.2 mg/dL (0.0-0.4); BILIRUBIN,TOTAL 0.6 mg/dL (0.2-1.3); BLOOD UREA NITROGEN 16 mg/dL (7-20); CALCIUM 9.6 mg/dL (8.4-10.2); CARBON DIOXIDE 24 mmol/L (22-30); CHLORIDE 100 mmol/L (98-107); GLUCOSE 100 mg/dL (75-110); POTASSIUM 5.2 mmol/L (3.6-5.0); SODIUM 138.4 mmol/L (137-145); TOTAL PROTEIN 7.8 g/dL (6.3-8.2)
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
--- NOTE | 2018-02-18 20:43 | RADIOLOGY REPORT (SQ) ---
EXAM DESCRIPTION: CHEST 2 VIEWS COMPLETED DATE/TIME: 02/18/2018 8:30 pm REASON FOR STUDY: cough COMPARISON: 08/30/2012 TECHNIQUE: Frontal and lateral radiographic views of the chest acquired. NUMBER OF VIEWS: Two view. LIMITATIONS: None. FINDINGS: LUNGS AND PLEURA: No pneumothorax. No consolidation or pleural effusion. MEDIASTINUM AND HILAR STRUCTURES: Stable. HEART AND VASCULAR STRUCTURES: Stable. BONES: No acute findings. HARDWARE: None in the chest. OTHER: No other significant finding. IMPRESSION: NO ACUTE FINDINGS. TECHNICAL DOCUMENTATION: JOB ID: [id number] 2010 [email or web address]- All Rights Reserved Reading location - IP/workstation name: [email or web address]
--- NOTE | 2018-02-18 22:03 | RADIOLOGY REPORT (SQ) ---
EXAM DESCRIPTION: US RETROPERITONEUM COMPLETED DATE/TME: 02/18/2018 20:02 CLINICAL HISTORY: 47 years, Female, right CVA tenderness COMPARISON: CT 01/30/2018 TECHNIQUE: Transverse and longitudinal sonographic images of the kidneys and urinary bladder LIMITATIONS: None. FINDINGS: The right kidney measures 10.7 cm in maximal diameter, the left measures 9.7 cm in maximal diameter. Previously described perinephric fat stranding and findings suggestive of pyelonephritis of the right kidney seen on CT are not appreciated on today's ultrasound. No renal mass or hydronephrosis. No renal calculus. Urinary bladder is not distended, limiting its evaluation. No perinephric fluid collection. The cortical medullary differentiation is preserved. IMPRESSION: Unremarkable exam 2010 [employer]- All Rights Reserved
[2018-02-18 23:02] VITALS: BP 111/60
== END 2018-02-18 23:02 | disposition home or self-care (01) ==
LOC: ER 18:24
DX: R10.9 Unspecified abdominal pain (principal); E86.0 Dehydration; R11.2 Nausea with vomiting, unspecified; I10 Essential (primary) hypertension; F17.200 Nicotine dependence, unspecified, uncomplicated
CPT/HCPCS: 96376; 99284; 96361; 96374; 96375; 36415; 87086; 85025; 80053; 81001; 83605; 71046; 76770; J2270; J2405; J7030

== ENCOUNTER 2018-03-15 20:29 | Emergency (ER) | payer OTHER ==
[2018-03-15] MEDS ORDERED: ASPIRIN 81 MG TABLET, CHEWABLE PO ONE (20:52)
[2018-03-15] MEDS ORDERED: THIAMINE HCL 100 MG, FOLIC ACID 1 MG in NORMAL SALINE 250 ML IV ONE (20:52)
[2018-03-15] MEDS ORDERED: LORAZEPAM INJ 2 MG/1 ML VIAL IV ONE ×2 (21:05→22:24)
--- NOTE | 2018-03-15 21:31 | ER Document Report ---
ED General - General TRAVEL OUTSIDE OF THE [place] IN LAST 30 DAYS: No <ROSAMARIA SHARMA - Last Filed: 03/16/18 06:54> <EDGARDO BAZZI - Last Filed: 03/16/18 11:18> - General Chief Complaint: Alcohol Withdrawl Stated Complaint: ALCOHOL WITHDRAWLS Time Seen by Provider: 03/15/18 20:51 Notes: Patient is a 47-year-old female presenting to the emergency department complaining of "withdrawing from alcohol." Patient states she feels as though her heart is racing, she is very anxious, has chest pain and trouble breathing. Patient states she has been binge drinking 1/5 of vodka a day for the last couple of weeks. States she has attempted alcohol withdrawal in her past twice. Patient is in the emergency room with her mother who states they were going to attempt a "beer drinking detox program." Patient states that her heart began to race this evening, she got very nauseated and had a headache. States she was concerned there was something wrong with her heart which is why she presents to the emergency room. Patient states the last time she drank any vodka was at 1800 hrs. this evening. Past medical history: Hypertension, GERD, avascular necrosis hips knees ankles bilaterally. Medications: Tramadol, lisinopril, omeprazole Allergies: Prednisone Last menstrual period 2013 (ROSAMARIA SHARMA) - Related Data Allergies/Adverse Reactions: prednisone [Prednisone] Allergy (Verified 01/02/18 17:26) Past Medical History - General Information source: Patient - Social History Smoking Status: Current Every Day Smoker Frequency of alcohol use: Heavy Drug Abuse: None Lives with: Family Family History: None - Past Medical History Cardiac Medical History: Reports: Hx Hypertension Renal/ Medical History: Denies: Hx Peritoneal Dialysis Psychiatric Medical History: Reports: Hx Anxiety, Hx Post Traumatic Stress Disorder Denies: Hx Depression Past Surgical History: Reports: Hx Appendectomy, Hx Breast Surgery - cyst removed, Hx Orthopedic Surgery - multiple back surgeries <ROSAMARIA SHARMA - Last Filed: 03/16/18 06:54> Review of Systems - Review of Systems Constitutional: See HPI EENT: See HPI Cardiovascular: See HPI Respiratory: See HPI Gastrointestinal: See HPI Genitourinary: See HPI Female Genitourinary: See HPI Musculoskeletal: No symptoms reported Skin: No symptoms reported Hematologic/Lymphatic: No symptoms reported Neurological/Psychological: No symptoms reported <FILIPPO SHARMAVALDEMAR - Last Filed: 03/16/18 06:54> Physical Exam <ROSAMARIA SHARMA - Last Filed: 03/16/18 06:54> <EDGARDO BAZZI - Last Filed: 03/16/18 11:18> - Vital signs Vitals: Pulse Resp BP Pulse Ox 124 H 14 151/95 H 97 03/15/18 20:36 03/15/18 20:36 03/15/18 20:36 03/15/18 20:36 - Notes Notes: GENERAL: Alert, interacts well. Anxious, rocking back and forth in the bed. HEAD: Normocephalic, atraumatic. EYES: Pupils equal, round, and reactive to light. Extraocular movements intact. ENT: Oral mucosa moist, tongue midline. NECK: Full range of motion. Supple. Trachea midline. LUNGS: Clear to auscultation bilaterally, no wheezes, rales, or rhonchi. No respiratory distress. HEART: Regular rate and rhythm. No murmur ABDOMEN: Soft, non-tender. Non-distended. Bowel sounds present in all 4 quadrants. EXTREMITIES: Moves all 4 extremities spontaneously. No edema, normal radial and dorsalis pedis pulses bilaterally. No cyanosis. BACK: no cervical, thoracic, lumbar midline tenderness. No saddle anesthesia, normal distal neurovascular exam. NEUROLOGICAL: Alert and oriented x3. Normal speech. cranial nerves II through XII grossly intact. PSYCH: Normal affect, normal mood. SKIN: Warm, dry, normal turgor. No rashes or lesions noted. (ROSAMARIA SHARMA) Course - Laboratory Result Diagrams: 03/15/18 21:20 03/15/18 21:20 <ROSAMARIA SHARMA - Last Filed: 03/16/18 06:54> - Laboratory Result Diagrams: 03/15/18 21:20 03/15/18 21:20 <EDGARDO BAZZI - Last Filed: 03/16/18 11:18> - Re-evaluation Re-evalutation: Lengthy discussion with patient about staying until the morning to talk to social work in order to potentially get into an alcohol rehab facility. Patient states she is extremely anxious at this time. States she has gone through rehabilitation twice in the past and for short period of time it has worked. Patient agrees to stay in the emergency room to be consulted with social work in the morning and potentially get her into a rehab facility. Patient appears very anxious, rocking back and forth in the bed. She is not tachycardic upon my examination. Heart rate 82. Patient was intermittently given Ativan and Phenergan for vomiting and anxiety. Patient slept for the most part throughout the entire night. 03/16/18 06:54 Patient care and report were transferred to Edgardo Bazzi PA-C at shift change. Patient's heart rate currently 81, pulse ox 98% on room air, respiratory rate 14, blood pressure 111/56. Patient is currently sleeping. In no obvious distress. (ROSAMARIA SHARMA) 03/16/18 08:33 This is Raymond Bazzi physician inside sales assistant I have taken over care of patient from Randell Sharma nighttime provider. She is informed me that patient is here requesting alcohol rehab and that she is already put in a consult for neonatal social worker for when they arrived in the morning to evaluate the patient for possible inpatient or outpatient treatment. She informed me that patient has required already 3 mg of Ativan and gets really shaky when she wakes up. Other than that patient has been a good patient without any palpitations or any high expectations from patient at this time. She is currently seeking inpatient therapy that will be evaluated and decided when neonatal social worker arrived. I will continue to monitor patient until such time she is either transferred to a facility or she is discharged home. 03/16/18 10:32 This is Raymond Bazzi physician inside sales assistant I was called to the patient's room by the mother after patient was evaluated by neonatal social worker for placement. It is been decided the patient will do outpatient treatment plan they have been given all the paperwork and contact information they need to for rehab facilities. Mother is with the daughter now currently patient had refused to see the social media senior associate until mother arrived which took about another hour. Mother is finally here has been evaluated with neonatal social worker in the room. They have elected as stated to follow-up outpatient and he will be given all the information. I was requested to go back to room to talk to mother about possibilities of anything to get patient over the hump to get to the facilities patient does state that she is been noted to have seizure type activity when she tries to detox so I will allow as per mother will give out the medication a Librium taper pack and this should get him through the weekend in order for her to get to the treatment facilities. I would inform patient that she should not be drinking and taking the medications and stress is highly to the mother. 03/16/18 11:16 I contacted our pharmacy for guidance onto the use of the taper pack. There is no pack that is designed. There is multiple different tapers out there the easiest one to follow was the one where it is 4 tabs 4 times a day day 1 then 4 tabs 3 times a day day 2 and 4 tabs 2 times a day day 3 and then 4 tabs at bedtime on day 4. I have put in the discharge papers that if mother cannot be responsible for handing the patient her pills out those specific times then she should not take the prescription. Because I informed him that it would be lethal if she drank without many pills and alcohol. (EDGARDO BAZZI) - Vital Signs Vital signs: Temp Pulse Resp BP Pulse Ox 98.2 F 124 H 15 111/56 L 100 03/16/18 06:00 03/15/18 20:36 03/16/18 07:00 03/16/18 06:19 03/16/18 07:00 - Laboratory Laboratory results interpreted by me: 03/15/18 03/16/18 21:20 01:05 MCH 33.9 H RDW 15.9 H Urine Protein 30 H Urine Ketones TRACE H Urine Urobilinogen 2.0 H Discharge <ROSAMARIA SHARMA - Last Filed: 03/16/18 06:54> <EDGARDO BAZZI - Last Filed: 03/16/18 11:18> - Discharge Clinical Impression: Alcohol abuse, EtOH withdrawal Condition: Stable Disposition: HOME, SELF-CARE Instructions: Alcohol Withdrawl ([facility]), Chronic Alcoholism ([facility]) Additional Instructions: It is been determined that family and neonatal social worker have come to agreement the patient can be treated in outpatient facility and have been given all the information necessary to achieve this purpose. As per patient and mother's request I will write you a prescription for the Librium taper. It is something you must be highly aware of that this is a sedating time and medication he should not drive on it at all. And you should definitely not mix it in alcohol. This is a lethal kind of medication if not taken appropriately so I am leaving it in mother's supervision. You may follow-up with your primary care as well who may be able to add an additional The Librium taper is quite substantial patient should not be allowed to handle the medications herself. If this cannot be guaranteed then we should not do a Librium taper outpatient. I know it is quite an undertaking but at this point in time if she combines all these pills with alcohol it is lethal. So in taking the prescription mother is responsible for patient getting the correct dosage at the correct times for the 4 days. Prescriptions: Chlordiazepoxide HCl [Librium 25 mg Capsule] 25 mg PO ASDIR #40 capsule Referrals: ORI MAC MD [Primary Care Provider] - Follow up as needed
--- NOTE | 2018-03-15 21:34 | RADIOLOGY REPORT (SQ) ---
EXAM DESCRIPTION: XR CHEST 1 VIEW COMPLETED DATE/TME: 03/15/2018 20:52 CLINICAL HISTORY: 47 years, Female, CP COMPARISON: None. NUMBER OF VIEWS: TECHNIQUE: LIMITATIONS: None. FINDINGS: There is possible emphysema. No evidence of pulmonary infiltrate or pleural effusion. The heart and mediastinum are unremarkable. Pulmonary vascularity appears normal. IMPRESSION: Possible emphysema. copyright 2010 [employer]- All Rights Reserved
[2018-03-15] MEDS ORDERED: PROMETHAZINE HCL INJ 25 MG/1 ML VIAL IV ONE (21:39)
[2018-03-15 22:15] LABS: ABSOLUTE BASOPHILS # (AUTO) 0.1 10^3/uL (0.0-0.2); ABSOLUTE EOSINOPHILS # (AUTO) 0.2 10^3/uL (0.0-0.6); ABSOLUTE LYMPHOCYTES (AUTO) 3.9 10^3/uL (0.5-4.7); ABSOLUTE MONOCYTES (AUTO) 0.6 10^3/uL (0.1-1.4); ABSOLUTE NEUT (AUTO) 5.8 10^3/uL (1.7-8.2); BASOPHILS % (AUTO) 0.6 % (0-2); EOSINOPHILS % (AUTO) 1.6 % (0-6); HEMATOCRIT 39.2 % (36.0-47.0); HEMOGLOBIN 13.7 g/dL (12.0-15.5); MEAN CORPUSCULAR HEMOGLOBIN 33.9 pg (27.0-33.4); MEAN CORPUSCULAR VOLUME 97 fl (80-97); MONOCYTES % (AUTO) 5.6 % (3-13); PLATELET COUNT 283 10^3/uL (150-450); RED BLOOD COUNT 4.04 10^6/uL (3.72-5.28); RED CELL DISTRIBUTION WIDTH 15.9 % (11.5-14.0); SEGMENTED NEUTROPHILS % (AUTO) 55.2 % (42-78); TOTAL CELLS COUNTED % (AUTO) 100 %; WHITE BLOOD COUNT 10.5 10^3/uL (4.0-10.5)
[2018-03-15] MEDS ORDERED: NORMAL SALINE 1000 ML 1,000 ML IV ONE (22:29)
[2018-03-15 22:30] LABS: INTERNATIONAL RATION (INR) 0.91; PROTHROMBIN TIME 12.7 SEC (11.4-15.4)
[2018-03-15 22:41] LABS: ALANINE AMINOTRANSFERASE 29 U/L (9-52); ALBUMIN 4.2 g/dL (3.5-5.0); ALKALINE PHOSPHATASE 85 U/L (38-126); ANION GAP 13 (5-19); ASPARTATE AMINO TRANSFERASE 32 U/L (14-36); BILIRUBIN,DIRECT 0.2 mg/dL (0.0-0.4); BILIRUBIN,TOTAL 0.2 mg/dL (0.2-1.3); BLOOD UREA NITROGEN 13 mg/dL (7-20); CALCIUM 9.1 mg/dL (8.4-10.2); CARBON DIOXIDE 27 mmol/L (22-30); CHLORIDE 103 mmol/L (98-107); CREATINE KINASE 58 U/L (30-135); GLUCOSE 95 mg/dL (75-110); POTASSIUM 3.9 mmol/L (3.6-5.0); SODIUM 143.2 mmol/L (137-145); TOTAL PROTEIN 7.5 g/dL (6.3-8.2)
[2018-03-15 22:50] LABS: CREATINE KINASE MB 0.31 ng/mL (<4.55)
[2018-03-15 22:55] LABS: TROPONIN I < 0.012 ng/mL
[2018-03-16] MEDS ORDERED: PROMETHAZINE HCL INJ 25 MG/1 ML VIAL IM ONE (01:20)
[2018-03-16] MEDS ORDERED: LORAZEPAM INJ 2 MG/1 ML VIAL IV ONE ×2 (01:20→07:39)
[2018-03-16 01:45] LABS: APPEARANCE,URINE SLIGHTLY-CLOUDY; BILIRUBIN,URINE NEGATIVE (NEGATIVE); COLOR,URINE YELLOW; GLUCOSE, URINE NEGATIVE (NEGATIVE); KETONES,URINE TRACE mg/dL (NEGATIVE); LEUKOCYTE ESTERASE,URINE NEGATIVE (NEGATIVE); NITRITE,URINE NEGATIVE (NEGATIVE); PROTEIN,URINE 30 mg/dL (NEGATIVE); URINE SPECIFIC GRAVITY 1.026
[2018-03-16] MEDS ORDERED: NORMAL SALINE 1000 ML 1,000 ML IV ONE (02:42)
[2018-03-16 06:21] VITALS: BP 111/56
[2018-03-16] MEDS ORDERED: ONDANSETRON HCL INJ/PF 4 MG/2 ML SDV IV ONE (07:39)
--- NOTE | 2018-03-16 07:50 | EKG REPORT ---
SEVERITY:- OTHERWISE NORMAL ECG - SINUS TACHYCARDIA : Confirmed by: Kristian Pradhan MD 16-Mar-2018 07:49:42
--- NOTE | 2018-03-20 13:58 | PSYCHOLOGICAL NOTE ---
Psych Note - Psych Note Date seen by psych provider: 03/16/18 Time seen by psych provider: 08:45 Psych Note: Reason for Consult: substance abuse Patient's mother joined patient at bedside after evaluation per patient's request Patient is a 47-year-old female presenting to the emergency department complaining of "withdrawing from alcohol." Patient reports she has been trying to detox on her own and had read about using beer and slowly decreasing the amount would work she she tried. Patient reports she was sober but started to working a lot of hours and started drinking again. She states she is not interested in inpatient or intensive outpatient because she needs to work to support the family. Patient's mother discloses that they had researched online different ways to actually detox from alcohol when she found detoxing with beer. She discloses that she would do anything she can to help assist the patient which includes supporting the patient if she needs to go into rehab. She reports reports that the patient needs to not worry about money and thinks that a one/two-year program would be more appropriate since the patient has struggled with alcoholism for so long. Patient agrees to think about it; clinician provided information on residential treatment at [facility]. Patient is alert and orientated to person, place, time and circumstance. Mood is dysphoric with congruent affect as patient is currently going through physical withdrawals of alcohol i.e. vomiting and diarrhea. Patient denies suicidal and homicidal ideations. Delusions are absent behaviors congruent with an intact reality based presentation i.e. organized linear thought process. Eye contact is fair. Conversational speech was within normal rate, tone and prosody. Intellectual abilities appear to be within the average range. Attention and concentration are fair. Insight, judgment, impulse control is fair. No medication or conditions at this time Alcohol use severe; currently going through withdrawal Impression\\plan: Patient is cleared from acute psychiatric services. Patient does not meet IVC criteria per [place] GS 122C. Patient reports attempting to detox on her own at home however needs to come in is feeling so sick. She discloses that she did not want to go inpatient to residential treatment because of needing to work however her family report they will support her in any decision the patient makes. They state the patient does not need to worry about money and she did go into residential treatment. Patient was open to thinking about it and received information on [facility]. Patient is highly encouraged to follow through with seeking residential treatment facility placement as patient's had alcohol use disorder severe for decades. Patient also received local resource list that include both substance abuse and mental health providers for the local area including mobile crisis. Dr. Wild was consulted and the care management this patient; attending physicians in agreement with augmentations and disposition.
== END 2018-03-16 11:30 | disposition home or self-care (01) ==
LOC: ER 20:29
DX: F10.239 Alcohol dependence with withdrawal, unspecified (principal); I10 Essential (primary) hypertension; K21.9 Gastro-esophageal reflux disease without esophagitis; R07.9 Chest pain, unspecified; R11.0 Nausea; F41.9 Anxiety disorder, unspecified; R06.9 Unspecified abnormalities of breathing; Z79.899 Other long term (current) drug therapy; Z72.0 Tobacco use
CPT/HCPCS: 93005; 96376; 99285; 96372; 96361; 96375; 96365; 36415; 82553; 82550; 85025; 85610; 80053; 81001; 84484; 71045; 93010; J3490; J2060 ×2; J2550 ×2; J3411; J2405; J7030 ×2; J7050

== ENCOUNTER 2018-05-29 13:10 | Inpatient (IN) | payer OTHER ==
[2018-05-29] MEDS ORDERED: LORAZEPAM INJ 2 MG/1 ML VIAL IM ONE (13:58)
[2018-05-29] MEDS ORDERED: RINGERS SOLUTION,LACTATED 1,000 ML IV ONE (13:59)
--- NOTE | 2018-05-29 14:00 | ER Document Report ---
ED Medical Screen (RME) - General Chief Complaint: Alcohol Withdrawl Stated Complaint: POSSIBLE ALCOHOL WITHDRAWL Time Seen by Provider: 05/29/18 13:57 Primary Care Provider: ORI MAC MD [Primary Care Provider] - Follow up as needed Notes: 45 years old female presents today for detox program with a history of heavy alcohol drinking. The last drink was this morning. States she is withdrawing, having shaking. TRAVEL OUTSIDE OF THE [place] IN LAST 30 DAYS: No - Related Data Allergies/Adverse Reactions: prednisone [Prednisone] Allergy (Verified 05/29/18 13:38) Past Medical History - Social History Family history: None - Past Medical History Cardiac Medical History: Reports: Hx Hypertension Renal/ Medical History: Denies: Hx Peritoneal Dialysis Psychiatric Medical History: Reports: Hx Anxiety, Hx Post Traumatic Stress Disorder Denies: Hx Depression Past Surgical History: Reports: Hx Appendectomy, Hx Breast Surgery - cyst removed, Hx Orthopedic Surgery - multiple back surgeries Physical Exam - Vital signs Vitals: Temp Pulse Resp BP Pulse Ox 97.6 F 95 16 139/89 H 95 05/29/18 13:37 05/29/18 13:37 05/29/18 13:37 05/29/18 13:37 05/29/18 13:37 Course - Vital Signs Vital signs: Temp Pulse Resp BP Pulse Ox 97.6 F 95 16 139/89 H 95 05/29/18 13:37 05/29/18 13:37 05/29/18 13:37 05/29/18 13:37 05/29/18 13:37 Doctor's Discharge - Discharge Referrals: ROI MAC MD [Primary Care Provider] - Follow up as needed
[2018-05-29 14:48] LABS: ABSOLUTE BASOPHILS # (AUTO) 0.2 10^3/uL (0.0-0.2); ABSOLUTE LYMPHOCYTES (AUTO) 2.6 10^3/uL (0.5-4.7); ABSOLUTE MONOCYTES (AUTO) 0.5 10^3/uL (0.1-1.4); ABSOLUTE NEUT (AUTO) 9.6 10^3/uL (1.7-8.2); BASOPHILS % (AUTO) 1.4 % (0-2); EOSINOPHILS % (AUTO) 0.3 % (0-6); HEMATOCRIT 44.8 % (36.0-47.0); HEMOGLOBIN 15.7 g/dL (12.0-15.5); MEAN CORPUSCULAR HEMOGLOBIN 33.4 pg (27.0-33.4); MEAN CORPUSCULAR VOLUME 95 fl (80-97); MONOCYTES % (AUTO) 3.8 % (3-13); PLATELET COUNT 331 10^3/uL (150-450); RED BLOOD COUNT 4.69 10^6/uL (3.72-5.28); RED CELL DISTRIBUTION WIDTH 14.3 % (11.5-14.0); SEGMENTED NEUTROPHILS % (AUTO) 74.5 % (42-78); TOTAL CELLS COUNTED % (AUTO) 100 %; WHITE BLOOD COUNT 12.9 10^3/uL (4.0-10.5)
[2018-05-29 15:03] LABS: ALANINE AMINOTRANSFERASE 27 U/L (9-52); ALCOHOL 31 mg/dL (NONE DETECTED); ALKALINE PHOSPHATASE 95 U/L (38-126); ANION GAP 14 (5-19); ASPARTATE AMINO TRANSFERASE 35 U/L (14-36); BILIRUBIN,DIRECT 0.3 mg/dL (0.0-0.4); BILIRUBIN,TOTAL 0.7 mg/dL (0.2-1.3); BLOOD UREA NITROGEN 14 mg/dL (7-20); CALCIUM 9.7 mg/dL (8.4-10.2); CARBON DIOXIDE 26 mmol/L (22-30); CHLORIDE 102 mmol/L (98-107); GLUCOSE 97 mg/dL (75-110); POTASSIUM 4.7 mmol/L (3.6-5.0); TOTAL PROTEIN 8.1 g/dL (6.3-8.2)
[2018-05-29 15:05] LABS: ACETAMINOPHEN < 10 ug/mL (10-30); SALICYLATE < 1.0 mg/dL (2.0-20.0)
[2018-05-29] MEDS ORDERED: THIAMINE HCL 100 MG in NORMAL SALINE 50 ML IV ONE (15:06)
[2018-05-29 15:07] LABS: AMORPHOUS SEDIMENT,URINE TRACE /HPF; APPEARANCE,URINE CLOUDY; BILIRUBIN,URINE NEGATIVE (NEGATIVE); COLOR,URINE YELLOW; GLUCOSE, URINE NEGATIVE (NEGATIVE); KETONES,URINE NEGATIVE (NEGATIVE); LEUKOCYTE ESTERASE,URINE MODERATE (NEGATIVE); NITRITE,URINE POSITIVE (NEGATIVE); PROTEIN,URINE 100 mg/dL (NEGATIVE); URINE SPECIFIC GRAVITY 1.019; UROBILINOGEN,URINE NEGATIVE mg/dL (<2.0)
[2018-05-29 15:11] LABS: URINE AMPHETAMINES SCREEN NEGATIVE; URINE BARBITURATES SCREEN NEGATIVE; URINE BENZODIAZEPINES SCREEN NEGATIVE; URINE COCAINE SCREEN NEGATIVE; URINE MARIJUANA (THC) SCREEN NEGATIVE; URINE METHADONE SCREEN NEGATIVE
[2018-05-29 15:15] LABS: URINE PHENCYCLIDINE SCREEN NEGATIVE
[2018-05-29] MEDS ORDERED: PANTOPRAZOLE SODIUM 40 MG VIAL IV ONE (15:16)
[2018-05-29] MEDS ORDERED: CEFTRIAXONE 1 GM/D5W RTU 1 GM/50 ML RTUPB IV ONE (15:16)
--- NOTE | 2018-05-29 15:20 | ER Document Report ---
ED General - General Chief Complaint: Alcohol Withdrawl Stated Complaint: POSSIBLE ALCOHOL WITHDRAWL Time Seen by Provider: 05/29/18 13:57 Mode of Arrival: Ambulatory Information source: Patient Notes: This is a 47-year-old female with a history significant for alcohol abuse and alcohol withdrawal. Patient presents to the emergency room tremulous, vomiting, anxious. Her last drink was several hours ago. Her mother reports that the patient's been vomiting all night. The patient is interested in an alcohol program once her acute withdrawal resides. TRAVEL OUTSIDE OF THE [place] IN LAST 30 DAYS: No - HPI Onset: Yesterday Onset/Duration: Gradual Quality of pain: No pain Severity: None Pain Level: Denies Associated symptoms: Nausea, Vomiting, Weakness, Other - Annulus this. denies: Chest pain, Fever, Shortness of breath Exacerbated by: Denies Relieved by: Denies Similar symptoms previously: Yes Recently seen / treated by doctor: No - Related Data Allergies/Adverse Reactions: prednisone [Prednisone] Allergy (Verified 05/29/18 13:38) Past Medical History - General Information source: Patient - Social History Smoking Status: Current Every Day Smoker Cigarette use (# per day): Yes - 1 pack/day Smoking Education Provided: No - 5 minutes Frequency of alcohol use: Heavy Drug Abuse: None Lives with: Family Family History: None Patient has suicidal ideation: No Patient has homicidal ideation: No - Past Medical History Cardiac Medical History: Reports: Hx Hypertension Renal/ Medical History: Denies: Hx Peritoneal Dialysis Psychiatric Medical History: Reports: Hx Anxiety, Hx Post Traumatic Stress Disorder Denies: Hx Depression Past Surgical History: Reports: Hx Appendectomy, Hx Breast Surgery - cyst removed, Hx Orthopedic Surgery - multiple back surgeries Review of Systems - Review of Systems Constitutional: denies: Chills, Fever EENT: No symptoms reported Cardiovascular: denies: Chest pain, Palpitations, Heart racing Respiratory: denies: Cough, Wheezing Gastrointestinal: Nausea, Vomiting. denies: Black stools, Rectal bleeding Genitourinary: No symptoms reported Female Genitourinary: No symptoms reported Musculoskeletal: No symptoms reported Skin: No symptoms reported Hematologic/Lymphatic: No symptoms reported Neurological/Psychological: See HPI, Anxiety, Weakness, Tremor. denies: Seizure, Lost consciousness Physical Exam - Vital signs Vitals: Temp Pulse Resp BP Pulse Ox 97.6 F 95 16 139/89 H 95 05/29/18 13:37 05/29/18 13:37 05/29/18 13:37 05/29/18 13:37 05/29/18 13:37 Notes: Physical exam: GENERAL: Patient is alert and oriented x3, she is tremulous, she does appear uncomfortable. Does complain of nausea. HEAD: Atraumatic, normocephalic. EYES: Pupils equal round and reactive to light, extraocular movements intact, sclera anicteric, conjunctiva are normal. ENT: TMs normal, nares patent, oropharynx clear without exudates. Moist mucous membranes. NECK: Normal range of motion, supple without obvious mass or JVD. LUNGS: Breath sounds clear to auscultation bilaterally and equal. No wheezes rales or rhonchi. HEART: Regular rate and rhythm without murmurs, rubs or gallops. ABDOMEN: Soft, normoactive bowel sounds. No tenderness to palpation. No gua rding, no rebound. No masses appreciated. EXTREMITIES: Normal range of motion, no pitting or edema. No clubbing or cyanosis. NEUROLOGICAL: Cranial nerves II through XII grossly intact. Normal speech, moving all extremities. PSYCH: Normal mood, normal affect. SKIN: Piloerection. Warm, Dry, normal turgor, no rashes or lesions noted. Course - Vital Signs Vital signs: Temp Pulse Resp BP Pulse Ox 98.1 F 95 17 104/67 97 05/29/18 17:00 05/29/18 13:37 05/29/18 17:00 05/29/18 16:02 05/29/18 17:00 - Laboratory Result Diagrams: 05/29/18 14:17 05/29/18 14:17 Laboratory results interpreted by me: 05/29/18 05/29/18 05/29/18 14:17 14:17 14:17 WBC 12.9 H Hgb 15.7 H RDW 14.3 H Absolute Neutrophils 9.6 H Urine Protein 100 H Urine Nitrite POSITIVE H Ur Leukocyte Esterase MODERATE H Salicylates < 1.0 L Acetaminophen < 10 L Critical Care Note - Critical Care Note Total time excluding time spent on procedures (mins): 60 Discharge - Discharge Clinical Impression: Acute alcohol withdrawal, Vomiting with nausea, UTI Condition: Stable Disposition: ADMITTED OBSERVATION Admitting Provider: Hospitalist - Dr Batista Unit Admitted: Telemetry
[2018-05-29] MEDS ORDERED: ACETAMINOPHEN 325 MG TABLET PO PRN (16:29)
[2018-05-29] MEDS ORDERED: NORMAL SALINE 1000 ML 1,000 ML IV PRN (16:30)
[2018-05-29] MEDS ORDERED: HYDRALAZINE HCL INJ/PF 20 MG/1 ML SDV IV PRN (16:31)
--- NOTE | 2018-05-29 16:50 | PDOC H&P ---
History of Present Illness Admission Date/PCP: 05/29/18 16:24 ORI MAC MD Patient complains of: tremulousness, vomiting, chills, dysuria History of Present Illness: LANEY GOMES is a 47 year old female with a past medical history of hypertension, alcohol abuse and prior history of alcohol withdrawal who presented with vomiting, chills and tremulousness since. Patient says that well but has been trying to quit alcohol drinking. He says that she drinks 1/5 of vodka a day. He says that last week she heard some bad news that her significant other was arrested and was sent to alf in [place]. She says she started binge drinking again and was drinking more than 1/5 of vodka a day for the past week. She says her last drink was early this morning. She complains of having hypogastric crampy pain in the past 2 days associated with chills and being shaky. She does report of mild, transient hematuria yesterday. She denies fever. She complains of 3-4 episodes of nonbloody nonbilious emesis. In the ER, she was noted to be tremulous, tachycardic and slightly hypertensive. Past Medical History Cardiac Medical History: Reports: Hypertension Psychiatric Medical History: Reports: Post Traumatic Stress Disorder Denies: Depression Past Surgical History Past Surgical History: Reports: Appendectomy, Orthopedic Surgery - multiple back surgeries Social History Smoking Status: Current Every Day Smoker Family History Family History: None Parental Family History Reviewed: Yes - no premature CAD Children Family History Reviewed: No Sibling(s) Family History Reviewed.: No Medication/Allergy Home Medications: Clonidine HCl [Catapres 0.1 mg Tablet] 0.1 mg PO BID 08/30/12 Hydrocodone Bit/Acetaminophen [Vicodin 5-325 mg Tablet] 1 - 2 tab PO ASDIR PRN #15 tablet 08/30/12 Lisinopril [Prinivil 10 mg Tablet] 10 mg PO DAILY 08/30/12 Gabapentin 300 mg PO BID PRN #14 capsule 08/21/17 Clarithromycin 500 mg PO BID #14 tablet 09/25/17 Dicyclomine HCl [Bentyl 20 mg Tablet] 20 mg PO QID #40 tablet 09/25/17 Metoclopramide HCl [Reglan 10 mg Tablet] 1 tab PO TIDP PRN #25 tablet 09/25/17 Omeprazole 40 mg PO DAILY #30 capsule. 09/25/17 Sucralfate [Carafate 1 gm Tablet] 1 gm PO ACHS #120 tablet 09/25/17 Methocarbamol [Robaxin 500 Mg Tablet] 500 mg PO QID PRN #20 tablet 01/03/18 Cephalexin [Keflex] 500 mg PO QID #40 capsule 01/30/18 Ibuprofen 800 mg PO TID PRN #30 tablet 01/30/18 Ondansetron [Zofran Odt 4 mg Tablet] 1 - 2 tab PO Q6H PRN #20 tab.rapdis 01/30/18 Ondansetron [Zofran Odt 4 mg Tablet] 1 - 2 tab PO Q4H PRN #15 tab.rapdis 1 04/20/17 Chlordiazepoxide HCl [Librium 25 mg Capsule] 25 mg PO ASDIR #40 capsule 03/16/18 Allergies/Adverse Reactions: prednisone [Prednisone] Allergy (Verified 05/29/18 13:38) Review of Systems All systems: reviewed and no additional remarkable complaints except as stated - as mentoined in HPI Physical Exam Vital Signs: Temp Pulse Resp BP Pulse Ox 97.6 F 95 16 137/116 H 97 05/29/18 13:37 05/29/18 13:37 05/29/18 16:00 05/29/18 15:56 05/29/18 16:00 Intake & Output 05/28/18 05/29/18 05/30/18 06:59 06:59 06:59 Intake Total 1050 Balance 1050 Weight 191 lb 9.307 oz General appearance: PRESENT: no acute distress, other - tremulous Eye exam: PRESENT: conjunctiva pink, EOMI, PERRLA. ABSENT: scleral icterus Ear exam: PRESENT: normal external ear exam Mouth exam: PRESENT: moist, tongue midline Neck exam: ABSENT: carotid bruit, JVD, lymphadenopathy, thyromegaly Respiratory exam: PRESENT: clear to auscultation stevie. ABSENT: rales, rhonchi, wheezes Cardiovascular exam: PRESENT: RRR. ABSENT: diastolic murmur, rubs, systolic murmur Pulses: PRESENT: normal dorsalis pedis pul GI/Abdominal exam: PRESENT: normal bowel sounds, soft. ABSENT: distended, guarding, mass, organolmegaly, rebound, tenderness Rectal exam: PRESENT: deferred Neurological exam: PRESENT: alert, awake, oriented to person, oriented to place, oriented to time, oriented to situation, CN II-XII grossly intact. ABSENT: motor sensory deficit Results Laboratory Results: 05/29/18 14:17 05/29/18 14:17 05/29/18 05/29/18 05/29/18 14:17 14:17 14:17 WBC 12.9 H RBC 4.69 Hgb 15.7 H Hct 44.8 MCV 95 MCH 33.4 MCHC 35.0 RDW 14.3 H Plt Count 331 Seg Neutrophils % 74.5 Lymphocytes % 20.0 Monocytes % 3.8 Eosinophils % 0.3 Basophils % 1.4 Absolute Neutrophils 9.6 H Absolute Lymphocytes 2.6 Absolute Monocytes 0.5 Absolute Eosinophils 0.0 Absolute Basophils 0.2 Sodium 142.0 Potassium 4.7 Chloride 102 Carbon Dioxide 26 Anion Gap 14 BUN 14 Creatinine 0.64 Est GFR ( Amer) > 60 Est GFR (Non-Af Amer) > 60 Glucose 97 Calcium 9.7 Total Bilirubin 0.7 AST 35 ALT 27 Alkaline Phosphatase 95 Total Protein 8.1 Albumin 5.0 Urine Color YELLOW Urine Appearance CLOUDY Urine pH 8.0 Ur Specific [place] 1.019 Urine Protein 100 H Urine Glucose (UA) NEGATIVE Urine Ketones NEGATIVE Urine Blood NEGATIVE Urine Nitrite POSITIVE H Ur Leukocyte Esterase MODERATE H Urine WBC (Auto) 119 Urine RBC (Auto) 2 Assessment & Plan - Diagnosis (1) Alcohol withdrawal Is this a current diagnosis for this admission?: Yes Plan: Will start patient on CIWA protocol, ativan prn. Start Iv fluids and banana bag. (2) Alcohol dependence Is this a current diagnosis for this admission?: Yes Plan: Counseled on alcohol drinking cessation. (3) UTI (urinary tract infection) Is this a current diagnosis for this admission?: Yes Plan: Continue Rocephin. - Time Time Spent: 30 to 50 Minutes
--- NOTE | 2018-05-29 17:52 | EKG REPORT ---
SEVERITY:- NORMAL ECG - SINUS RHYTHM : Confirmed by: Sophia Berrios MD 29-May-2018 17:52:11
[2018-05-29] MEDS ORDERED: NORMAL SALINE 1000 ML 1,000 ML with POTASSIUM CHLORIDE 20 MEQ, MAGNESIUM SULFATE 8 MEQ,... IV SCH ×5 (18:00)
[2018-05-29] MEDS: LORAZEPAM INJ 2 MG/1 ML VIAL IV PRN ×2 (18:23→21:09)
[2018-05-29] MEDS: ONDANSETRON HCL INJ/PF 4 MG/2 ML SDV IV PRN (18:24)
[2018-05-30] MEDS: LORAZEPAM INJ 2 MG/1 ML VIAL IV PRN ×6 (04:56→22:40)
[2018-05-30] MEDS: ONDANSETRON HCL INJ/PF 4 MG/2 ML SDV IV PRN ×3 (05:34→23:13)
[2018-05-30 07:11] LABS: ANION GAP 10 (5-19); BLOOD UREA NITROGEN 15 mg/dL (7-20); CALCIUM 8.9 mg/dL (8.4-10.2); CARBON DIOXIDE 25 mmol/L (22-30); CHLORIDE 105 mmol/L (98-107); GLUCOSE 89 mg/dL (75-110); SODIUM 140.3 mmol/L (137-145)
[2018-05-30 07:26] LABS: POTASSIUM 3.6 mmol/L (3.6-5.0)
[2018-05-30] MEDS: CEFTRIAXONE 1 GM/D5W RTU 1 GM/50 ML RTUPB IV SCH (10:02)
[2018-05-30] MEDS: MULTIVITAMIN TABLET PO SCH (10:05)
[2018-05-30] MEDS: THIAMINE HCL 100 MG TABLET PO SCH (10:05)
[2018-05-30] MEDS: FOLIC ACID 1 MG TABLET PO SCH (10:05)
[2018-05-30] MEDS: FONDAPARINUX SODIUM INJ 2.5 MG/0.5 ML DISP.SYRIN SUBCUT SCH (10:06)
[2018-05-30] MEDS: NICOTINE 21 MG/24 HR PATCH.TD24 TD SCH (16:56)
--- NOTE | 2018-05-30 17:05 | PDOC PROGRESS REPORT ---
Subjective Progress Note for:: 05/30/18 Subjective:: LANEY GOMES is a 47 year old female with a past medical history of hypertension, alcohol abuse and prior history of alcohol withdrawal who presented with vomiting, chills and tremulousness who was admitted for alcohol withdrawal and UTI. Patient is more tremulous and was more restless today. She required 8 mg of Ativan overnight. She says she had 3 episodes of loose stools this morning although this has not been noted by staff. She denies SOB or chest pain. Reason For Visit: ALCOHOL WITHDRAWL,UTI Physical Exam Vital Signs: Temp Pulse Resp BP Pulse Ox 98.9 F 97 20 125/69 93 05/30/18 00:00 05/30/18 00:00 05/30/18 00:00 05/30/18 00:00 05/30/18 00:00 Intake & Output 05/29/18 05/30/18 05/31/18 06:59 06:59 06:59 Intake Total 1322 50 Balance 1322 50 Weight 198 lb 6.656 oz General appearance: PRESENT: no acute distress, well-developed, well-nourished, other - tremulous Head exam: PRESENT: atraumatic, normocephalic Eye exam: PRESENT: conjunctiva pink, EOMI, PERRLA. ABSENT: scleral icterus Ear exam: PRESENT: normal external ear exam Neck exam: ABSENT: carotid bruit, JVD, lymphadenopathy, thyromegaly Respiratory exam: PRESENT: clear to auscultation stevie. ABSENT: rales, rhonchi, wheezes Cardiovascular exam: PRESENT: RRR. ABSENT: diastolic murmur, rubs, systolic murmur Pulses: PRESENT: normal dorsalis pedis pul GI/Abdominal exam: PRESENT: normal bowel sounds, soft. ABSENT: distended, gu arding, mass, organolmegaly, rebound, tenderness Rectal exam: PRESENT: deferred Neurological exam: PRESENT: alert, awake, oriented to person, oriented to place, oriented to time, oriented to situation, CN II-XII grossly intact. ABSENT: motor sensory deficit Results Laboratory Results: 05/29/18 14:17 05/30/18 05:29 05/29/18 05/30/18 14:17 05:29 Sodium 140.3 Potassium 3.6 D Chloride 105 Carbon Dioxide 25 Anion Gap 10 BUN 15 Creatinine 0.71 Est GFR ( Amer) > 60 Est GFR (Non-Af Amer) > 60 Glucose 89 Calcium 8.9 Magnesium 1.8 1.9 Assessment & Plan - Diagnosis (1) Alcohol withdrawal Is this a current diagnosis for this admission?: Yes Plan: On CIWA protocol. Continue ativan prn. Conitnue IV fluids and multivitamin replacement. (2) Alcohol dependence Is this a current diagnosis for this admission?: Yes Plan: Counseled on alcohol drinking cessation. (3) UTI (urinary tract infection) Is this a current diagnosis for this admission?: Yes Plan: Continue Rocephin. - Time Time Spent with patient: 25-34 minutes
[2018-05-30] MEDS ORDERED: ROPINIROLE HCL 0.25 MG TABLET PO ONE (19:30)
[2018-05-31] MEDS: LORAZEPAM INJ 2 MG/1 ML VIAL IV PRN ×5 (00:40→10:12)
[2018-05-31] MEDS: ONDANSETRON HCL INJ/PF 4 MG/2 ML SDV IV PRN (05:31)
[2018-05-31] MEDS: FOLIC ACID 1 MG TABLET PO SCH (10:00)
[2018-05-31] MEDS: THIAMINE HCL 100 MG TABLET PO SCH (10:00)
[2018-05-31] MEDS: MULTIVITAMIN TABLET PO SCH (10:00)
[2018-05-31] MEDS: CEFTRIAXONE 1 GM/D5W RTU 1 GM/50 ML RTUPB IV SCH (10:01)
[2018-05-31] MEDS: FONDAPARINUX SODIUM INJ 2.5 MG/0.5 ML DISP.SYRIN SUBCUT SCH (10:01)
[2018-05-31] MEDS: NICOTINE 21 MG/24 HR PATCH.TD24 TD SCH (10:02)
[2018-05-31] MEDS: HALOPERIDOL LACTATE INJ 5 MG/1 ML VIAL IV PRN ×2 (14:33→21:08)
--- NOTE | 2018-05-31 17:26 | PDOC PROGRESS REPORT ---
Subjective Progress Note for:: 05/31/18 Subjective:: LANEY GOMES is a 47 year old female with a past medical history of hypertension, alcohol abuse and prior history of alcohol withdrawal who presented with vomiting, chills and tremulousness who was admitted for alcohol withdrawal and UTI. 05/30: Patient is more tremulous and was more restless today. She required 8 mg of Ativan overnight. She says she had 3 episodes of loose stools this morning although this has not been noted by staff. She denies SOB or chest pain. 05/31: Patient required 12 mg of Ativan overnight. She is well-oriented upon encounter but did report she was seeing a "lady" on the bedside last night and was later told there was actually none. She says she feels very jittery and is asking if she could smoke outside for a few minutes. She was told this is not allowed. She denies any other acute complaint. Denies hallucinations or delusions at this time during encounter. Reason For Visit: ALCOHOL WITHDRAWL,UTI Physical Exam Vital Signs: Temp Pulse Resp BP Pulse Ox 98.0 F 77 18 125/83 92 05/31/18 08:14 05/31/18 08:14 05/31/18 08:14 05/31/18 08:14 05/31/18 08:14 Intake & Output 05/30/18 05/31/18 06/01/18 06:59 06:59 06:59 Intake Total 1322 556 50 Balance 1322 556 50 Weight 198 lb 6.656 oz 197 lb 8.547 oz General appearance: PRESENT: no acute distress, well-developed, well-nourished Head exam: PRESENT: atraumatic, normocephalic Eye exam: PRESENT: conjunctiva pink, EOMI, PERRLA. ABSENT: scleral icterus Ear exam: PRESENT: normal external ear exam Mouth exam: PRESENT: moist, tongue midline Neck exam: ABSENT: carotid bruit, JVD, lymphadenopathy, thyromegaly Respiratory exam: PRESENT: clear to auscultation stevie. ABSENT: rales, rhonchi, wheezes Cardiovascular exam: PRESENT: RRR. ABSENT: diastolic murmur, rubs, systolic murmur Pulses: PRESENT: normal dorsalis pedis pul GI/Abdominal exam: PRESENT: normal bowel sounds, soft. ABSENT: distended, guarding, mass, organolmegaly, rebound, tenderness Rectal exam: PRESENT: deferred Neurological exam: PRESENT: alert, awake, oriented to person, oriented to place, oriented to time, oriented to situation, CN II-XII grossly intact. ABSENT: motor sensory deficit Results Laboratory Results: 05/29/18 14:17 05/30/18 05:29 05/29/18 14:17 Clean Catch Midstream Urine Culture - Final Escherichia Coli Assessment & Plan - Diagnosis (1) Alcohol withdrawal Is this a current diagnosis for this admission?: Yes Plan: On CIWA protocol. Continue ativan prn. Conitnue IV fluids and multivitamin replacement. (2) Alcohol dependence Is this a current diagnosis for this admission?: Yes Plan: Counseled on alcohol drinking cessation. (3) UTI (urinary tract infection) Is this a current diagnosis for this admission?: Yes Plan: Continue Rocephin. - Time Time Spent with patient: 25-34 minutes
[2018-06-01] MEDS: HALOPERIDOL LACTATE INJ 5 MG/1 ML VIAL IV PRN (03:20)
[2018-06-01] MEDS: MULTIVITAMIN TABLET PO SCH (10:20)
[2018-06-01] MEDS: THIAMINE HCL 100 MG TABLET PO SCH (10:20)
[2018-06-01] MEDS: FOLIC ACID 1 MG TABLET PO SCH (10:20)
[2018-06-01] MEDS: NICOTINE 21 MG/24 HR PATCH.TD24 TD SCH (10:21)
[2018-06-01] MEDS: FONDAPARINUX SODIUM INJ 2.5 MG/0.5 ML DISP.SYRIN SUBCUT SCH (10:21)
[2018-06-01] MEDS: CEFTRIAXONE 1 GM/D5W RTU 1 GM/50 ML RTUPB IV SCH (10:21)
[2018-06-01 11:07] VITALS: BP 116/65
--- NOTE | 2018-06-01 15:28 | PDOC DISCHARGE SUMMARY ---
General - Admit/Disc Date/PCP Admission Date/Primary Care Provider: 05/29/18 16:24 ORI MAC MD Discharge Date: 06/01/18 - Discharge Diagnosis (1) Alcohol withdrawal Is this a current diagnosis for this admission?: Yes (2) Alcohol dependence Is this a current diagnosis for this admission?: Yes (3) UTI (urinary tract infection) Is this a current diagnosis for this admission?: Yes - Additional Information Discharge Diet: As Tolerated Discharge Activity: Activity As Tolerated Prescriptions: Chlordiazepoxide HCl 5 mg PO Q12 PRN #12 capsule PRN Reason: Ciprofloxacin HCl [Cipro 500 mg Tablet] 500 mg PO BID 4 Days #8 tablet Home Medications: Multivitamin [Daily Multiple Vitamin] 1 each PO DAILY 05/29/18 Chlordiazepoxide HCl 5 mg PO Q12 PRN #12 capsule 06/01/18 Ciprofloxacin HCl [Cipro 500 mg Tablet] 500 mg PO BID 4 Days #8 tablet 06/01/18 History of Present Illness History of Present Illness: LANEY GOMES is a 47 year old female with a past medical history of hypertension, alcohol abuse and prior history of alcohol withdrawal who presented with vomiting, chills and tremulousness since. Patient says that well but has been trying to quit alcohol drinking. He says that she drinks 1/5 of vodka a day. He says that last week she heard some bad news that her significant other was arrested and was sent to correction in [place]. She says she started binge drinking again and was drinking more than 1/5 of vodka a day for the past week. She says her last drink was early this morning. She complains of having hypogastric crampy pain in the past 2 days associated with chills and being shaky. She does report of mild, transient hematuria yesterday. She denies fever. She complains of 3-4 episodes of nonbloody nonbilious emesis. In the ER, she was noted to be tremulous, tachycardic and slightly hypertensive. Hospital Course Hospital Course: LANEY GOMES is a 47 year old female with a past medical history of hypertension, alcohol abuse and prior history of alcohol withdrawal who presented with vomiting, chills and tremulousness who was admitted for alcohol withdrawal and UTI. Patient was started on CIWA protocol. She was also started on IV fluids and multivitamin replacement. She was also started on Rocephin for her UTI. She did improve and on her last night did not require further Ativan. She was AO x 4 and denies depressed mood or suicidal ideation. 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 She is planning to pursue the substance/alcohol abuse program in [facility]. She does say she may drink again and was wondering if she could take something as needed if she relapses and would need something for withdrawal symptoms. She says she was taking PO Ativan prn before but lost her PCP. She was given a referral for the [facility] clinic. Urine culture grew E. coli. She was switched and discharge on ciprofloxacin. Physical Exam Vital Signs: Temp Pulse Resp BP Pulse Ox 97.5 F 95 20 116/65 97 06/01/18 11:06 06/01/18 11:06 06/01/18 11:06 06/01/18 11:06 06/01/18 11:06 Intake & Output 05/31/18 06/01/18 06/02/18 06:59 06:59 06:59 Intake Total 556 1991 1050 Balance 556 1991 1050 Weight 197 lb 8.547 oz 202 lb 6.15 oz General appearance: PRESENT: no acute distress, well-developed, well-nourished Head exam: PRESENT: atraumatic, normocephalic Eye exam: PRESENT: conjunctiva pink, EOMI, PERRLA. ABSENT: scleral icterus Ear exam: PRESENT: normal external ear exam Mouth exam: PRESENT: moist, tongue midline Neck exam: ABSENT: carotid bruit, JVD, lymphadenopathy, thyromegaly Respiratory exam: PRESENT: clear to auscultation stevie. ABSENT: rales, rhonchi, wheezes Cardiovascular exam: PRESENT: RRR. ABSENT: diastolic murmur, rubs, systolic murmur Pulses: PRESENT: normal dorsalis pedis pul GI/Abdominal exam: PRESENT: normal bowel sounds, soft. ABSENT: distended, guarding, mass, organolmegaly, rebound, tenderness Rectal exam: PRESENT: deferred Neurological exam: PRESENT: alert, awake, oriented to person, oriented to place, oriented to time, oriented to situation, CN II-XII grossly intact. ABSENT: motor sensory deficit Results Laboratory Results: 05/29/18 14:17 05/30/18 05:29 Qualifiers - * PATIENT BEING DISCHARGED WITH ANY OF THE FOLLOWING DIAGNOSIS: No
== END 2018-06-01 11:37 | disposition home or self-care (01) | DRG 897 ==
LOC: ER 13:10 → EH 16:24 → OBSVTOIN 16:24 → UNDOADMOB 16:24 → 4S 18:01
PROVIDERS: ADMIT Internal Medicine; ATTEND Internal Medicine
DX: F10.239 Alcohol dependence with withdrawal, unspecified (principal); N39.0 Urinary tract infection, site not specified; F17.210 Nicotine dependence, cigarettes, uncomplicated; I10 Essential (primary) hypertension; F41.9 Anxiety disorder, unspecified; F43.10 Post-traumatic stress disorder, unspecified; B96.20 Unspecified Escherichia coli [E. coli] as the cause of diseases classified elsewhere; Z23 Encounter for immunization
CPT/HCPCS: 36415; 80048; 80053; 80307; 81001; 83735; 84702; 85025; 87040; 87077; 87086; 87088; 87186; 90471; 90686; 93005; 93010; 96361; 96365; 96372; 96375; 99285; G0008; G0378; J0696; J1630; J1652; J2060; J2405; J3411; J3490; J7030; J7120; S0164

== ENCOUNTER 2019-06-09 22:43 | Emergency (ER) | payer SELFPAY ==
[2019-06-10] MEDS ORDERED: HYDROCODONE/ACETAMINOPHEN 5-325 MG TABLET PO ONE (00:05)
--- NOTE | 2019-06-10 00:08 | ER Document Report ---
ED Medical Screen (RME) - General Chief Complaint: Knee Pain Stated Complaint: FALL-RIGHT KNEE PAIN Time Seen by Provider: 06/09/19 23:53 Primary Care Provider: ORI MAC MD [Primary Care Provider] - Follow up as needed TRAVEL OUTSIDE OF THE [place] IN LAST 30 DAYS: No - HPI Notes: 06/10/19 00:06 48-year-old female to the emergency department with complaints of right knee pain that is been getting worse since yesterday. About 4 days ago she sustained a fall and states that her knee hurt initially with the fall but seemed to be okay. She states that she was able to go golfing 3 days ago. After she went coughing she woke up the next morning and noticed the pain in her knee. It has gotten progressively worse. Anytime she moves that she yells out in pain. She states that she is not able to bear weight due to the pain. And today she has since been swelling. Denies any redness or warmth to the joint. She has not noticed a fever in the past 2 days. She does admit that she had the flu last week. She states that she has been taking Tylenol /Motrin for the pain but it has not been helping. She is also been trying ice and heat. - Related Data Allergies/Adverse Reactions: prednisone [Prednisone] Allergy (Verified 05/29/18 13:38) Past Medical History - Social History Family history: None - Past Medical History Cardiac Medical History: Reports: Hx Hypertension Pulmonary Medical History: Reports: Hx Asthma, Hx Bronchitis, Hx Pneumonia Renal/ Medical History: Denies: Hx Peritoneal Dialysis GI Medical History: Reports: Hx Ulcer Psychiatric Medical History: Reports: Hx Anxiety, Hx Post Traumatic Stress Disorder Denies: Hx Depression Past Surgical History: Reports: Hx Appendectomy, Hx Breast Surgery - cyst removed, Hx Orthopedic Surgery - multiple back surgeries Physical Exam - Vital signs Vitals: Temp Pulse Resp BP Pulse Ox 98.2 F 110 H 22 H 144/87 H 96 06/09/19 22:49 06/09/19 22:49 06/09/19 22:49 06/09/19 22:49 06/09/19 22:49 Course - Vital Signs Vital signs: Temp Pulse Resp BP Pulse Ox 98.2 F 110 H 22 H 144/87 H 96 06/09/19 22:49 06/09/19 22:49 06/09/19 22:49 06/09/19 22:49 06/09/19 22:49 Doctor's Discharge - Discharge Referrals: ORI MAC MD [Primary Care Provider] - Follow up as needed
--- NOTE | 2019-06-10 00:49 | RADIOLOGY REPORT (SQ) ---
EXAM DESCRIPTION: Four views of the right knee CLINICAL HISTORY: 48 years Female, knee pain/knee injury COMPARISON: None. FINDINGS: Bone mineralization is diminished. 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 Vascular clips are seen adjacent to the fibula and there is resection of the distal fibula. Medial angulation of the knee is noted. No acute fracture. There is prepatellar soft tissue swelling. No definite effusion. IMPRESSION: Postsurgical change of the fibula. Bone infarcts. No acute process.
[2019-06-10] MEDS ORDERED: ONDANSETRON 4 MG TAB.RAPDIS PO ONE (04:35)
[2019-06-10] MEDS ORDERED: OXYCODONE-ACETAMINOPHEN 5-325 MG TABLET PO ONE (04:35)
[2019-06-10] MEDS ORDERED: HYDROCODONE/ACETAMINOPHEN 5-325 MG (6 TAB/ER DISP) PO PRN (04:35)
--- NOTE | 2019-06-10 04:41 | ER Document Report ---
HPI - HPI Time Seen by Provider: 06/09/19 23:53 Pain Level: 1 Context: 48-year-old female to the emergency department with complaints of right knee pain that is been getting worse since yesterday. About 4 days ago she sustained a fall and states that her knee hurt initially with the fall but seemed to be okay. She states that she was able to go golfing 3 days ago. After she went coughing she woke up the next morning and noticed the pain in her knee. It has gotten progressively worse. Anytime she moves that she yells out in pain. She states that she is not able to bear weight due to the pain. And today she has since been swelling. Denies any redness or warmth to the joint. She has not noticed a fever in the past 2 days. She does admit that she had the flu last week. She states that she has been taking Tylenol /Motrin for the pain but it has not been helping. She is also been trying ice and heat. - REPRODUCTIVE Reproductive: DENIES: : Past Medical History - General Information source: Patient - Social History Smoking Status: Never Smoker Chew tobacco use (# tins/day): No Frequency of alcohol use: Heavy Drug Abuse: None Lives with: Alone Family History: None Patient has suicidal ideation: No Patient has homicidal ideation: No - Past Medical History Cardiac Medical History: Reports: Hx Hypertension Pulmonary Medical History: Reports: Hx Asthma, Hx Bronchitis, Hx Pneumonia Renal/ Medical History: Denies: Hx Peritoneal Dialysis GI Medical History: Reports: Hx Ulcer Psychiatric Medical History: Reports: Hx Anxiety, Hx Post Traumatic Stress Disorder Denies: Hx Depression Past Surgical History: Reports: Hx Appendectomy, Hx Breast Surgery - cyst removed, Hx Orthopedic Surgery - multiple back surgeries Vertical Provider Document - CONSTITUTIONAL General Appearance: WD/WN, No Apparent Distress - Patient is comfortable unless she moves the right knee, she does have some pain with moving and ambulating - INFECTION CONTROL TRAVEL OUTSIDE OF THE [place] IN LAST 30 DAYS: No - HEENT HEENT: Atraumatic, Normocephalic - NECK Neck: Normal Inspection - RESPIRATORY Respiratory: Breath Sounds Normal, No Respiratory Distress, Chest Non-Tender - CARDIOVASCULAR Cardiovascular: Regular Rate, Regular Rhythm - GI/ABDOMEN Gastrointestinal: Abdomen Soft, Abdomen Non-Tender. negative: Abdomen Tender - BACK Back: Normal Inspection - MUSCULOSKELETAL/EXTREMETIES Musculoskeletal/Extremeties: MAEW, FROM, Tender - There is tenderness with faint contusion over the right anterior knee just below the patella. There does appear to be some soft tissue swelling. Range of motion of the knee is intact, there is no significant erythema or warmth. There is some soft tissue swelling and edema below the knee extending down towards the top of the ankle as well. No significant hematoma or contusion is noted. No noted erythema. No severe tenderness suggesting compartment syndrome. Normal distal pulses and sensation. - NEURO Level of Consciousness: Awake, Alert, Appropriate Motor/Sensory: No Motor Deficit, No Sensory Deficit - DERM Integumentary: Warm, Dry, No Rash Course - Re-evaluation Re-evalutation: Patient does have swelling of the right lower extremity. There is evidence of trauma which is mild, there is no evidence of compartment syndrome. Because of the injury and soft tissue swelling I recommended venous Doppler, patient would have to wait for a few hours unfortunately because of the time at night. Patient declines. X-ray does show old findings but no acute findings. No effusion in the knee. Patient has range of motion of the knee which is normal. 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 Based on her exam I am most likely suspect soft tissue injury with some component of hematoma but I cannot rule out a blood clot. Patient states she will come back for a blood clot later today if provided with a form/prescription for this, she was provided with this. Patient placed in a knee immobilizer, given crutches, discussed close orthopedic follow- up as well. Patient states appreciation and agreement. Stable at time of discharge. - Vital Signs Vital signs: Temp Pulse Resp BP Pulse Ox 98.2 F 99 22 H 123/78 95 06/10/19 02:31 06/10/19 02:31 06/10/19 02:31 06/10/19 02:31 06/10/19 02:31 Procedures - Immobilization right knee Pre-Proc Neuro Vasc Exam: Normal Immobilizer type: Knee immobilizer Performed by: RN Post-Proc Neuro Vasc Exam: Normal Alignment checked and good: Yes Discharge - Discharge Clinical Impression: Right leg swelling Right knee injury Qualifiers: Encounter type: initial encounter Qualified Code(s): S89.91XA - Unspecified injury of right lower leg, initial encounter Condition: Stable Disposition: HOME, SELF-CARE Additional Instructions: Your x-ray does not show any new concerning findings except for soft tissue swelling on the front of the knee. Because of your lower extremity swelling and the injury I do recommend that you perform the venous Doppler ultrasound, have this performed over the next 2 days. I recommend the anti-inflammatory, knee immobilizer, and crutches. Ice the area several times a day for 10 to 15 minutes. Symptoms should simply resolve with time. If symptoms continue please follow-up closely with orthopedics for additional management. Return for any concerning or worsening symptoms including severe worsening pain or swelling. Prescriptions: Naproxen 500 mg PO BID PRN #20 tablet PRN Reason: Forms: Follow-Up Outpatient Testing Referrals: MARY BETH HODGE JR, [ACTIVE PROVISIONAL STAFF] - Follow up in 1 week
[2019-06-10 05:03] VITALS: BP 125/66
== END 2019-06-10 05:27 | disposition home or self-care (01) ==
LOC: ER 22:43
DX: S80.01XA Contusion of right knee, initial encounter (principal); M25.561 Pain in right knee; W19.XXXA Unspecified fall, initial encounter; M79.89 Other specified soft tissue disorders; I10 Essential (primary) hypertension; J45.909 Unspecified asthma, uncomplicated
CPT/HCPCS: 99283; 73564; S0119

== ENCOUNTER → 2019-06-11 | Outpatient (CLI) | payer SELFPAY ==
--- NOTE | 2019-06-11 16:17 | RADIOLOGY REPORT (SQ) ---
EXAM DESCRIPTION: VENOUS UNILATERAL LOWER COMPLETED DATE/TIME: 06/11/2019 4:05 pm REASON FOR STUDY: RLE SWELLING COMPARISON: None. TECHNIQUE: Dynamic and static hawthorne scale and color images acquired of the right leg venous system. S elected spectral images acquired with additional compression and augmentation maneuvers. The contrala teral common femoral vein and saphenofemoral junction were also imaged. Images stored on PACS. LIMITATIONS: None. FINDINGS: COMMON FEMORAL: Normal phasicity, compression and augmentation. No visualized echogenic ma terial on hawthorne scale. No defects on color images. FEMORAL: Normal compression and augmentation. No visualized echogenic material on hawthorne scale. No defe cts on color images. POPLITEAL: Normal compression, augmentation. No visualized echogenic material on hawthorne scale. No defec ts on color images. CALF VESSELS: Normal compression, augmentation. No visualized echogenic material on hawthorne scale. No de fects on color images. GSV and SSV: Normal compression, augmentation. No visualized echogenic material on hawthorne scale. No def ects on color images. ANY DEEP VENOUS INSUFFICIENCY: No. ANY EVIDENCE OF POPLITEAL CYST: No. OTHER: No other significant finding. CONTRALATERAL COMMON FEMORAL VEIN AND SAPHENOFEMORAL JUNCTION: Normal phasicity, compression and augmentation. No visualized echogenic material on hawthorne scale. No de fects on color images. IMPRESSION: NO EVIDENCE DVT OR SVT IN THE RIGHT LEG. TECHNICAL DOCUMENTATION: JOB ID: [id number] 2010 [employer]- All Rights Reserved Reading location - IP/workstation name: [email or web address]
== END ==
LOC: SP 13:44
DX: M79.89 Other specified soft tissue disorders (principal)
CPT/HCPCS: 93971